=== PATIENT | male | born 1950 | race Caucasian/White ===

== ENCOUNTER 2017-06-08 09:03 | Inpatient (IN) | payer BC, MEDICARE ==
[~2017-06-08] VITALS: Ht 172.7 cm; Wt 76.4 kg
[~2017-06-08 09:03] MED LIST: APIX5TAB PO; ASPI-983 PO; AZIT500T PO; AZTH250C PO; BUPR-42 PO; CEFD300C PO; CEFD300C3 PO; CLOP75TA28 PO; CLOP75TA69 PO; FLUT1DIS26 IH; FURO40TA4 PO; IPRA3AMP IH; IPRA3AMP11 INH; LISI-552 PO; LISI10TA2 PO; LOSA50TA36 PO; METO-387 PO; Multivitamins/Minerals Therap PO; POTA20TA15 PO; SOTA80TA PO
--- OUTSIDE RECORDS SUMMARY | 2017-06-08 09:08 | XMS REPORT | Clinical Summary ---
Author Author [facility] Organization [facility] Address Unknown Phone Unavailable Care Team Providers Care Skein Drier Name Role Phone PCP Unavailable Source Comments Some departments are not documenting in the electronic medical record. If you do not see the information that you expected, contact Release of Information in the Health Information Management department at [phone] for further assistance in locating additional records.[facility] Allergies No Known Allergies Current Medications Prescription Sig. Disp. Refills Start End Date Status Date fluticasone-salmeterol Inhale 1 Puff by mouth Active (ADVAIR DISKUS) 250-50 every 12 hours. mcg inhalation disk albuterol-ipratropium Inhale 3 mL solution as Active (DUO-NEB, DUO-VENT) 0.5 directed four times mg-3 mg(2.5 mg base)/3 mL daily. nebulizer solution tiotropium (SPIRIVA) 18 Inhale 18 mcg by mouth Active mcg capsule for inhaler daily. senna/docusate Take 2 Tabs by mouth 60 Tab 0 02/19/20 Active (SENOKOT-S) 8.6/50 mg twice daily. 14 tablet levofloxacin (LEVAQUIN) Take 1 Tab by mouth every 9 Tab 0 02/19/20 Active 750 mg tablet 24 hours. 14 oxyCODONE-acetaminophen Take 1-2 Tabs by mouth 30 Tab 0 02/19/20 Active (PERCOCET) 5-325 mg every 4 hours as needed 14 tablet for Pain Earliest Fill Date: 02/17/14 Max 12 tabs/day Active Problems Problem Noted Date Adenocarcinoma (HCC) 02/21/2014 Lung cancer (HCC) 01/11/2014 COPD (chronic obstructive pulmonary disease) (HCC) 01/11/2014 Family History Medical History Relation Name Comments Cancer-Lung Brother Cancer-Colon Father Relation Name Status Comments Brother Father Social History Tobacco Use Types Packs/Day Years Used Date Former Smoker Cigarettes 1.5 40 Quit: 12/11/2013 Smokeless Tobacco: Never Used Alcohol Use Drinks/Week oz/Week Comments Yes 6 Standard 3.0 drinks or equivalent Sex Assigned at Date Recorded Not on file Last Filed Vital Signs Vital Sign Reading Time Taken Blood Pressure 140/80 03/09/2014 3:32 PM CDT Pulse 82 03/09/2014 3:32 PM CDT Temperature 36.7 C (98 F) 02/18/2014 7:25 AM CDT Respiratory Rate - - Oxygen Saturation 99% 02/18/2014 7:25 AM CDT Inhaled Oxygen - - Concentration Weight 73.5 kg (162 lb) 03/09/2014 3:32 PM CDT Height 170.2 cm (5' 7") 03/09/2014 3:32 PM CDT Body Mass Index 25.37 03/09/2014 3:32 PM CDT Plan of Treatment Health Maintenance Due Date Last Done Comments HEPATITIS C SCREENING 1950 PHYSICAL (COMPREHENSIVE) 1959 EXAM PERTUSSIS VACCINE 1963 TETANUS VACCINE 1969 COLORECTAL CANCER 2002 SCREENING SHINGLES VACCINE 2012 INFLUENZA VACCINE 01/06/2017 Results Not on filefrom Last 3 Months
--- OUTSIDE RECORDS SUMMARY | 2017-06-08 09:09 | XMS REPORT | Continuity of Care Document ---
Author Author [facility] Organization [facility] Address Unknown Phone Unavailable Allergies Active Description Code Type Severity Reaction Onset Reported/Identified Relationship to Patient Clinical Status Yes No Known Drug Allergies [id number] Drug Allergy Unknown N/A 12/11/2013 Medications There is no data. Problems Date Dx Coded Attending Type Code Diagnosis Diagnosed By 12/14/2013 LORI LOPEZ DO Ot 276.1 HYPOSMOLALITY 12/14/2013 LORI LOPEZ DO S Ot 305.01 ALCOHOL ABUSE-CONTINUOUS 12/14/2013 LORI LOPEZ DO S Ot 305.1 TOBACCO USE DISORDER 12/14/2013 LORI LOPEZ DO S Ot 401.9 HYPERTENSION NOS 12/14/2013 SHIRLENE LOPEZ DOLINE S Ot 486 PNEUMONIA, ORGANISM NOS 12/14/2013 SHIRLENE LOPEZ DOLINE S Ot 496 CHR AIRWAY OBSTRUCT NEC 12/14/2013 SHIRLENE LOPEZ DOLINE S Ot 759.6 HAMARTOSES NEC 12/14/2013 HILLARY LOPEZ DOQUELINE S Ot 786.6 CHEST SWELLING/MASS/LUMP 12/21/2013 YOBANI COOL DO Ot 496 CHR AIRWAY OBSTRUCT NEC 12/21/2013 YOBANI COOL DO Ot 512.1 IATROGENIC PNEUMOTHORAX 12/21/2013 YOBANI COOL DO Ot 518.89 OTHER DISEASES OF LUNG, NEC 04/05/2014 CHAZ PUGA MD Ot 305.1 TOBACCO USE DISORDER 04/05/2014 CHAZ PUGA MD Ot 706.2 SEBACEOUS CYST 04/05/2014 CHAZ PUGA MD Ot 786.6 CHEST SWELLING/MASS/LUMP 04/30/2015 LORI LOPEZ DO S Ot E87.1 04/30/2015 LORI LOPEZ DO S Ot F17.210 04/30/2015 LORI LOPEZ DO S Ot J44.9 05/01/2015 JOHN HOROWITZ, LORI S Ot E87.1 05/01/2015 JOHN HOROWITZ, LORI S Ot F17.210 05/01/2015 JOHN HOROWITZ, LORI S Ot J44.9 05/02/2015 CLAUNDCALVIN HOROWITZ, LORI S Ot C34.91 MALIGNANT NEOPLASM OF UNSP PART OF RIGHT 05/02/2015 SHIRLENE LOPEZ DOLINE S Ot E87.1 HYPO-OSMOLALITY AND HYPONATREMIA 05/02/2015 JOHN HOROWITZ, LORI S Ot F10.10 ALCOHOL ABUSE, UNCOMPLICATED 05/02/2015 CLAUNDER DO, LORI S Ot F17.210 NICOTINE DEPENDENCE, CIGARETTES, UNCOMPL 05/02/2015 JOHN HOROWITZ, LORI S Ot I48.91 UNSPECIFIED ATRIAL FIBRILLATION 05/02/2015 JOHN HOROWITZ, LORI S Ot I95.9 HYPOTENSION, UNSPECIFIED 05/02/2015 JOHN HOROWITZ, LORI S Ot J44.9 CHRONIC OBSTRUCTIVE PULMONARY DISEASE, U 05/02/2015 JOHN HOROWITZ, LORI S Ot N28.9 DISORDER OF KIDNEY AND URETER, UNSPECIFI 07/11/2015 RADHA LUGO FACC, CRISTIAN FACP CCDS Ot D64.9 ANEMIA, UNSPECIFIED 07/11/2015 RADHA LUGO FACC, ALI FACP CCDS Ot E87.1 HYPO-OSMOLALITY AND HYPONATREMIA 07/11/2015 RADHA LUGO FACC, ALI FACP CCDS Ot F10.10 ALCOHOL ABUSE, UNCOMPLICATED 07/11/2015 RADHA LUGO FACC, CRISTIAN FACP CCDS Ot F17.200 NICOTINE DEPENDENCE, UNSPECIFIED, UNCOMP 07/11/2015 RADHA LUGO FACC, ALI FACP CCDS Ot I10 ESSENTIAL (PRIMARY) HYPERTENSION 07/11/2015 RADHA LUGO FACC, ALI FACP CCDS Ot I25.10 ATHSCL HEART DISEASE OF [place] CORONARY 07/11/2015 RADHA LUGO FACC, ALI FACP CCDS Ot I48.91 UNSPECIFIED ATRIAL FIBRILLATION 07/11/2015 RADHA LUGO FACC, ALI FACP CCDS Ot R06.00 DYSPNEA, UNSPECIFIED 07/11/2015 RADHA LUGO FACC, CRISTIAN FACP CCDS Ot R55 SYNCOPE AND COLLAPSE 07/11/2015 RADHA LUGO FACC, ALI FACP CCDS Ot Z79.01 DATA PROCESSING SYSTEMS CONSULTANT (CURRENT) USE OF ANTICOAGULANT 07/11/2015 RADHA LUGO [facility], CRISTIAN [facility] Ot Z79.899 OTHER DATA PROCESSING SYSTEMS CONSULTANT (CURRENT) DRUG THERAPY 11/21/2015 LORI LOPEZ DO Ot E87.1 HYPO-OSMOLALITY AND HYPONATREMIA 11/21/2015 SHIRLENE LOPEZ DOLINE S Ot F10.239 ALCOHOL DEPENDENCE WITH WITHDRAWAL, UNSP 11/21/2015 SHIRLENE LOPEZ DOLINE S Ot F17.210 NICOTINE DEPENDENCE, CIGARETTES, UNCOMPL 11/21/2015 JOHN HOROWITZ LORI S Ot I10 ESSENTIAL (PRIMARY) HYPERTENSION 11/21/2015 JOHN HOROWITZ LORI S Ot I25.10 ATHSCL HEART DISEASE OF [place] CORONARY 11/21/2015 JOHN HOROWITZ LORI S Ot J18.9 PNEUMONIA, UNSPECIFIED ORGANISM 11/21/2015 CLAUJANEL HOROWITZ LORI S Ot Z85.118 PERSONAL HISTORY OF MALIGNANT NEOPLASM O 11/21/2015 JORGECALVIN HOROWITZ LORI S Ot Z95.5 PRESENCE OF CORONARY ANGIOPLASTY IMPLANT 11/27/2015 JOHN HOROWITZ LORI S Ot 162.9 MAL [place] BRONCH/LUNG NOS 11/27/2015 CLAUJANEL HOROWITZ LORI S Ot 512.89 OTHER PNEUMOTHORAX 11/27/2015 JORGECALVIN HOROWITZ LORI S Ot 793.19 OTHER NONSPECIFIC ABNORMAL FINDING OF [place] 11/27/2015 EDD LUGO, CHAZ Little Ot 786.6 CHEST SWELLING/MASS/LUMP 11/27/2015 YOBANI COOL DO Ot 518.89 OTHER DISEASES OF LUNG, NEC 11/27/2015 YOBANI COOL DO Ot 793.19 OTHER NONSPECIFIC ABNORMAL FINDING OF [place] 11/27/2015 YOBANI COOL DO Ot V15.82 HISTORY OF TOBACCO USE 11/27/2015 Ot 305.1 TOBACCO USE DISORDER 11/27/2015 Ot 706.2 SEBACEOUS CYST 11/27/2015 Ot 786.6 CHEST SWELLING/MASS/LUMP Procedures There is no data. Results There is no data. Encounters ACCT No. Visit Date/Time Discharge Status Pt. Type Provider Facility Loc./Unit Complaint [id number] 11/18/2015 00:58:00 11/21/2015 10:05:00 DIS Inpatient JORGEER LORI HOROWITZ S [facility] [address] [id number] 07/10/2015 10:11:00 07/11/2015 11:15:00 DIS Outpatient RADHA LUGO FACC, CRISTIAN SAUCEDO CCDS [facility] [id number] 04/29/2015 14:43:00 05/02/2015 10:55:00 DIS Inpatient SHIRLENE LOPEZ DOLINE S [address] [id number] 01/05/2014 13:07:00 04/05/2014 00:01:00 DIS Outpatient CHAZ PUGA MD [facility] ONC [id number] 01/23/2014 09:13:00 01/23/2014 23:59:59 CLS Outpatient YOBANI COOL DO [facility] CARD [id number] 01/20/2014 13:54:00 01/20/2014 23:59:59 CLS Outpatient CHAZ PUGA MD [facility] RT [id number] 12/27/2013 07:15:00 12/27/2013 23:59:59 CLS Outpatient LORI LOPEZ DO S [facility] RAD [id number] 12/19/2013 18:20:00 12/21/2013 02:10:00 DIS Inpatient YOBANI COOL DO [facility] SURGICAL [id number] 12/11/2013 17:07:00 12/14/2013 17:40:00 DIS Inpatient SHIRLENE LOPEZ DOLINE S [address] [id number] 04/06/2014 00:00:00 Document Registration
[2017-06-08] MEDS ORDERED: NS IV 1000 ML 1,000 ML IV ONE (09:22)
[2017-06-08] MEDS ORDERED: RT-ALBUTEROL/IPRATROPIUM 3 ML (DUONEB) VIAL INH ONE ×2 (09:30→10:00)
[2017-06-08] MEDS ORDERED: methylPREDNISolone 125 MG (Solu-MEDROL) VIAL IVP ONE (10:00)
--- NOTE | 2017-06-08 10:03 | Diagnostic Imaging Report ---
INDICATION: Cough and congestion. Comparison is made to the prior from 11/21/2015. FINDINGS: There has not been evidence of significant interval change in the appearance of the patient's large left juxtahilar pulmonary mass. Background features of interstitial lung disease are noted. There are no new infiltrates. There is no effusion or evidence of a pneumothorax. Heart size appears stable without evidence of failure. IMPRESSION: 1. Stable left juxtahilar pulmonary mass. Background features of underlying interstitial lung disease are again noted. No new superimposed process is evident. Dictated by: Dictated on workstation # [id number]
[2017-06-08 10:11] LABS: BASOPHILS % (AUTO) 0 % (0-10); EOSINOPHILS % (AUTO) 0 % (0-10); HEMATOCRIT 45 % (40-54); HEMOGLOBIN 15.5 G/DL (13.3-17.7); LYMPHOCYTES # (AUTO) 1.3 X 10^3 (1.0-4.0); LYMPHOCYTES % (AUTO) 7 % (12-44); MEAN CORPUSCULAR HEMOGLOBIN 32 PG (25-34); MEAN CORPUSCULAR HGB CONC 35 G/DL (32-36); MEAN CORPUSCULAR VOLUME 93 FL (80-99); MEAN PLATELET VOLUME 10.1 FL (7.4-10.4); MONOCYTES % (AUTO) 17 % (0-12); NEUTROPHILS # (AUTO) 13.1 X 10^3 (1.8-7.8); NEUTROPHILS % (AUTO) 75 % (42-75); PLATELET COUNT 200 10^3/uL (130-400); RED BLOOD COUNT 4.83 10^6/uL (4.35-5.85); RED CELL DISTRIBUTION WIDTH 13.1 % (10.0-14.5); WHITE BLOOD COUNT 17.4 10^3/uL (4.3-11.0)
[2017-06-08 10:16] LABS: INR 1.2 (0.8-1.4); PROTHROMBIN TIME PATIENT 14.8 SEC (12.2-14.7)
[2017-06-08 10:27] LABS: ALANINE AMINOTRANSFERASE 13 U/L (0-55); ALBUMIN 4.2 GM/DL (3.2-4.5); ALKALINE PHOSPHATASE 80 U/L (40-136); BILIRUBIN,TOTAL 0.7 MG/DL (0.1-1.0); BUN/CREATININE RATIO 13; CALCIUM 9.4 MG/DL (8.5-10.1); CARBON DIOXIDE 21 MMOL/L (21-32); CHLORIDE 94 MMOL/L (98-107); CREATININE SERUM 0.83 MG/DL (0.60-1.30); GFR ESTIMATED > 60; GLUCOSE 120 MG/DL (70-105); SODIUM 131 MMOL/L (135-145)
[2017-06-08 10:33] LABS: BAND NEUTROPHILS 6 %; LYMPHOCYTES % (MANUAL) 5 %; MONOCYTES % (MANUAL) 14 %; NEUTROPHILS % (MANUAL) 75 %; RBC MORPH NORMAL; TOXIC GRANULATION/VACUOLAZATIO 1+
--- NOTE | 2017-06-08 11:05 | ED General ---
General Chief Complaint: Respiratory Problems Stated Complaint: TROUBLE BREATHING;CONGESTION;COUGH Nursing Triage Note: c/o soa and cough/congestion. Onset 2-3 days ago. Fever noted. Nursing Sepsis Screen: Possible Sepsis Risk Source of Information: Patient Exam Limitations: No Limitations History of Present Illness Time Seen by Provider: 09:07 Initial Comments This 66-year-old gentleman with COPD presents to the emergency room with respiratory distress. He is wheezing, cough, dyspneic, and febrile. Oxygen saturation is 88 percent. He normally uses nebulizer treatments at home but ran out of his medication today. He is a former smoker and quit smoking a few years ago. He has been ill for 2 days. Patient has a known chronic left lung mass which has been biopsied in the past. The pathology report on file states the biopsy was suspicious for adenocarcinoma. The patient states this has been followed on an outpatient basis and neoplasm on the left has been ruled out. He does have a history of lung cancer on the right. Allergies and Home Medications Allergies Coded Allergies: No Known Drug Allergies (Unverified , 12/11/13) Home Medications Aspirin 325 Mg Tablet.dr, 325 MG PO DAILY PRN for PAIN-MILD, (Reported) Cefdinir 300 Mg Capsule, 300 MG PO BID, #6 Prescribed by: SANA ESPINAL on 06/11/17 1103 Ipratropium/Albuterol Sulfate 3 Ml Ampul.neb, 3 ML IH BID PRN for SHORTNESS OF BREATH, #60 Prescribed by: SANA ESPINAL on 06/11/17 1103 Lisinopril 20 Mg Tablet, 20 MG PO DAILY, #30 Prescribed by: SANA ESPINAL on 06/11/17 1103 Prednisone 10 Mg Tab.ds.pk, 10 MG PO DAILY, #21 Take 6 tabs(60mg)daily,decrease by 1 tab(10MG)daily. Prescribed by: SANA ESPINAL on 06/11/17 1103 Constitutional: see HPI EENTM: see HPI Respiratory: see HPI Cardiovascular: no symptoms reported Gastrointestinal: no symptoms reported Genitourinary: no symptoms reported Musculoskeletal: no symptoms reported Skin: no symptoms reported Psychiatric/Neurological: No Symptoms Reported Hematologic/Lymphatic: No Symptoms Reported Past Blnvxwp-Bmmeoq-Ebymho Hx Patient Social History Alcohol Use: Denies Use Recreational Drug Use: No Smoking Status: Former Smoker 2nd Hand Smoke Exposure: No Recent Foreign Travel: No Contact w/Someone Who Travel: No Recent Infectious Disease Expo: No Seasonal Allergies Seasonal Allergies: No Surgeries History of Surgeries: Yes (1/3 OF RIGHT LUNG REMOVED FOR CANCER - AND TEETH REMOVED FOR DENTURES) Surgeries: Lobectomy, Tonsillectomy Respiratory History of Respiratory Disorde: Yes (LUNG RESECTION, left upper lung mass) Respiratory Disorders: COPD, Emphysema Cardiovascular History of Cardiac Disorders: Yes ( STENTS X2) Cardiac Disorders: Coronary Artery Disease, Hypertension Neurological History of Neurological Disord: No Reproductive System Hx Reproductive Disorders: No Gastrointestinal History of Gastrointestinal Di: No Musculoskeletal History of Musculoskeletal Dis: No Endocrine History of Endocrine Disorders: No HEENT HEENT Disorders: Cataract Loss of Vision: Left Cancer History of Cancer: Yes Cancer: Lung Psychosocial History of Psychiatric Problem: No Integumentary History of Skin or Integumenta: No Blood Transfusions History of Blood Disorders: No Adverse Reaction to a Blood Tr: No Family Medical History Significant Family History: Heart Disease, Cancer, Hypertension, Lung Disease Family Medial History: Cancer (brother had lung cancer) 19 FATHER G8 BROTHER Cancer of colon 19 FATHER Family history: Allergy G8 BROTHER Hearing loss 19 FATHER Malignant neoplasm of lung G8 BROTHER Parkinson's disease 19 MOTHER Physical Exam-Suspected Sepsis Physical Exam Vital Signs Vital Sign - Last 12Hours 06/08/17 06/08/17 09:35 10:22 Temp 101.4 Pulse 92 Resp 24 B/P (MAP) 136/97 (110) Pulse Ox 95 O2 Delivery Nasal Cannula O2 Flow Rate 5.00 Capillary Refill : Less Than 3 Seconds Blood Pressure Mean: 110 General Appearance: WD/WN, Moderate Distress HEENT: PERRL/EOMI, Normal ENT Inspection, Pharynx Normal Neck: Normal Inspection Respiratory: Accessory Muscle Use, Respiratory Distress, Wheezing Cardiovascular: No Edema, No Murmur, Tachycardia Gastrointestinal: Non Tender, Soft Extremity: Normal Inspection, No Pedal Edema Neurologic/Psychiatric: Alert, Oriented x3, No Motor/Sensory Deficits, Normal Mood/Affect, fish header II-XII Norm as Tested Skin: normal color, warm/dry Focused Exam Evaluation Lactate Level Lactic Acid Level Progress/Results/Core Measures Suspected Sepsis Recent Fever Within 48 Hours: No Infection Criteria Present: Suspected New Infection New/Unexplained Altered Menta: No Sepsis Screen: Possible Sepsis Risk Sepsis Diagnosis: SIRS Temperature:101.4 Pulse: 92 Respiratory Rate: 24 Laboratory Tests 06/11/17 05:24: White Blood Count 10.8 Blood Pressure 136 /97 Mean: 110 Laboratory Tests 06/11/17 05:24: Creatinine 0.65, Platelet Count 211, Total Bilirubin 0.2 Results/Orders Lab Results Laboratory Tests Test 06/11/17 05:24 Range/Units White Blood Count 10.8 4.3-11.0 10^3/uL Red Blood Count 4.13 L 4.35-5.85 10^6/uL Hemoglobin 13.3 13.3-17.7 G/DL Hematocrit 39 L 40-54 % Mean Corpuscular Volume 95 80-99 FL Mean Corpuscular Hemoglobin 32 25-34 PG Mean Corpuscular Hemoglobin Concent 34 32-36 G/DL Red Cell Distribution Width 12.7 10.0-14.5 % Platelet Count 211 130-400 10^3/uL Mean Platelet Volume 10.4 7.4-10.4 FL Neutrophils (%) (Auto) 87 H 42-75 % Lymphocytes (%) (Auto) 6 L 12-44 % Monocytes (%) (Auto) 7 0-12 % Eosinophils (%) (Auto) 0 0-10 % Basophils (%) (Auto) 0 0-10 % Neutrophils # (Auto) 9.3 H 1.8-7.8 X 10^3 Lymphocytes # (Auto) 0.6 L 1.0-4.0 X 10^3 Monocytes # (Auto) 0.8 0.0-1.0 X 10^3 Eosinophils # (Auto) 0.0 0.0-0.3 10^3/uL Basophils # (Auto) 0.0 0.0-0.1 10^3/uL Sodium Level 142 135-145 MMOL/L Potassium Level 2.9 L 3.6-5.0 MMOL/L Chloride Level 99 98-107 MMOL/L Carbon Dioxide Level 32 21-32 MMOL/L Anion Gap 11 5-14 MMOL/L Blood Urea Nitrogen 8 7-18 MG/DL Creatinine 0.65 0.60-1.30 MG/DL Estimat Glomerular Filtration Rate > 60 BUN/Creatinine Ratio 12 Glucose Level 144 H 70-105 MG/DL Calcium Level 9.0 8.5-10.1 MG/DL Total Bilirubin 0.2 0.1-1.0 MG/DL Aspartate Amino Transf (AST/SGOT) 19 5-34 U/L Alanine Aminotransferase (ALT/SGPT) 19 0-55 U/L Alkaline Phosphatase 67 40-136 U/L Total Protein 5.4 L 6.4-8.2 GM/DL Albumin 3.5 3.2-4.5 GM/DL Micro Results My Orders Medications Given in ED Vital Signs/I&O Capillary Refill : Less Than 3 Seconds Blood Pressure Mean: 110 Progress Note : Progress Note Patient responded fairly well to DuoNeb treatment 2. He was also given Solu- Medrol 125 mg by IV route. IV fluids were initiated in the emergency room. Workup demonstrated leukocytosis and an elevated CRP. No overt pneumonia was seen on chest x-ray. Influenza screen was negative. Although no source of infection was identified on workup, Dr. Espinal and I feel it would be la to treat him with antibiotics given the abnormal labs and fever. Given the prevalence of influenza in the community, we will also treat with Tamiflu. Diagnostic Imaging Diagonstic Imaging: Xray Plain Films/CT/US/NM/MRI: chest Comments Chest x-ray viewed by me and report reviewed. See report below: NAME: TANYA WATTER[facility] REC#: [id number] PT STATUS: ADM IN : 1950 PHYSICIAN: CAROL MORTON MD ADMIT DATE: 06/08/17 Signed Date of Exam: 06/08/17 CHEST 1 VIEW, AP/PA ONLY INDICATION: Cough and congestion. Comparison is made to the prior from 11/21/2015. FINDINGS: There has not been evidence of significant interval change in the appearance of the patient's large left juxtahilar pulmonary mass. Background features of interstitial lung disease are noted. There are no new infiltrates. There is no effusion or evidence of a pneumothorax. Heart size appears stable without evidence of failure. IMPRESSION: 1. Stable left juxtahilar pulmonary mass. Background features of underlying interstitial lung disease are again noted. No new superimposed process is evident. Dictated by: Dictated on workstation # [id number] Dict: 06/08/17 0958 Trans: 06/08/17 1259 Interpreted by: SAMUEL LEMUS MD Electronically signed by: SAMUEL LEMUS MD 06/08/17 1259 Departure Communication (Admissions) Time/Spoke to Admitting Phy: 10:[address] Espinal Impression Impression: Primary Impression: COPD exacerbation Additional Impressions: Hypoxia Leukocytosis Qualified Codes: D72.829 - Elevated white blood cell count, unspecified Disposition: 09 ADMITTED INPATIENT Condition: Improved Admissions Decision to Admit Reason: Admit from ER (General) Decision to Admit/Date: Jun 08, 2017 Time/Decision to Admit Time: 09:15 Departure-Patient Inst. Referrals: LORI LOPEZ DO (PCP/Family) Primary Care Physician Scripts Prednisone (Prednisone) 10 Mg Tab.ds.pk 10 MG PO DAILY, #21 PKG Take 6 tabs(60mg)daily,decrease by 1 tab(10MG)daily. Prov: SANA ESPINAL DO 06/11/17 Cefdinir (Cefdinir) 300 Mg Capsule 300 MG PO BID, #6 CAP Prov: SANA ESPINAL DO 06/11/17 Lisinopril (Lisinopril) 20 Mg Tablet 20 MG PO DAILY, #30 TAB Prov: SANA ESPINAL DO 06/11/17 Ipratropium/Albuterol Sulfate (Iprat-Albut 0.5-3(2.5) mg/3 ml) 3 Ml Ampul.neb 3 ML IH BID Y for SHORTNESS OF BREATH, #60 EA Prov: SANA ESPINAL DO 06/11/17 CAROL MORTON MD Jun 08, 2017 11:05
--- OUTSIDE RECORDS SUMMARY | 2017-06-08 11:20 | XMS REPORT | Clinical Summary ---
Author Author [facility] Organization [facility] Address Unknown Phone Unavailable Care Team Providers Care Student Finance Advisor Name Role Phone PCP Unavailable Source Comments Some departments are not documenting in the electronic medical record. If you do not see the information that you expected, contact Release of Information in the Health Information Management department at [phone] for further assistance in locating additional records.[facility] Allergies No Known Allergies Current Medications [...]
--- OUTSIDE RECORDS SUMMARY | 2017-06-08 11:21 | XMS REPORT | Continuity of Care Document ---
Author Author [facility] Organization [facility] Address Unknown Phone Unavailable Allergies Active Description Code Type Severity Reaction Onset Reported/Identified Relationship to Patient Clinical Status Yes No Known Drug Allergies [id number] Drug Allergy Unknown N/A 12/11/2013 Medications There [...] LORI LOPEZ DO S Ot E87.1 04/30/2015 LOIR LOPEZ DO S Ot F17.210 04/30/2015 LORI [...] I48.91 UNSPECIFIED ATRIAL FIBRILLATION 05/02/2015 JOHN HOROWITZ, LROI S Ot I95.9 HYPOTENSION, UNSPECIFIED 05/02/2015 JOHN [...] CCDS Ot I25.10 ATHSCL HEART DISEASE OF [place] CORONARY 07/11/2015 RADHA LUGO FACC, ALI FACP CCDS Ot I48.91 UNSPECIFIED ATRIAL FIBRILLATION 07/11/2015 RADHA LUGO FACC, ALI FACP CCDS Ot R06.00 DYSPNEA, UNSPECIFIED 07/11/2015 RADHA LUGO FACC, CRISTIAN FACP CCDS Ot R55 SYNCOPE AND COLLAPSE 07/11/2015 RADHA LUGO FACC, ALI FACP CCDS Ot Z79.01 FABRIC AND ACCESSORIES ESTIMATOR (CURRENT) USE OF ANTICOAGULANT 07/11/2015 RADHA LUGO [facility] Ot Z79.899 OTHER FABRIC AND ACCESSORIES ESTIMATOR (CURRENT) DRUG THERAPY 11/21/2015 SHIRLENE LOPEZ DOLINE S Ot E87.1 HYPO-OSMOLALITY AND HYPONATREMIA 11/21/2015 SHIRLENE LOPEZ DOLINE S Ot F10.239 ALCOHOL DEPENDENCE WITH WITHDRAWAL, UNSP 11/21/2015 SHIRLENE LOPEZ DOLINE S Ot F17.210 NICOTINE DEPENDENCE, CIGARETTES, UNCOMPL 11/21/2015 HILLARY LOPEZ DOQUELINE S Ot I10 ESSENTIAL (PRIMARY) HYPERTENSION 11/21/2015 SHIRLENE LOPEZ DOLINE S Ot I25.10 ATHSCL HEART DISEASE OF [place] CORONARY 11/21/2015 SHIRLENE LOPEZ DOLINE S Ot J18.9 PNEUMONIA, UNSPECIFIED ORGANISM 11/21/2015 SHIRLENE LOPEZ DOLINE S Ot Z85.118 PERSONAL HISTORY OF MALIGNANT NEOPLASM O 11/21/2015 SHIRLENE LOPEZ DOLINE S Ot Z95.5 PRESENCE OF CORONARY ANGIOPLASTY IMPLANT 11/27/2015 JOHN HOROWITZ LORI S Ot 162.9 MAL DAYRON BRONCH/LUNG NOS 11/27/2015 SHIRLENE LOPEZ DOLINE S Ot 512.89 OTHER PNEUMOTHORAX 11/27/2015 JOHN HOROWITZ LORI S Ot 793.19 OTHER NONSPECIFIC [...] SWELLING/MASS/LUMP Procedures There is no data. Results Test Result Range Influenza virus A and B antigen detection - 06/08/17 09:24 FLU RESULT NEGATIVE FOR INFLUENZA A AND B ANTIGENS BY [facility] Complete blood count (CBC) with automated white blood cell (WBC) differential - 06/08/17 09:55 Blood leukocytes automated count (number/volume) 17.4 10*3/uL 4.3-11.0 Blood erythrocytes automated count (number/volume) 4.83 10*6/uL 4.35-5.85 Venous blood hemoglobin measurement (mass/volume) 15.5 g/dL 13.3-17.7 Blood hematocrit (volume fraction) 45 % 40-54 Automated erythrocyte mean corpuscular volume 93 [foz_us] 80-99 Automated erythrocyte mean corpuscular hemoglobin (mass per erythrocyte) 32 pg 25-34 Automated erythrocyte mean corpuscular hemoglobin concentration measurement ( mass/volume) 35 g/dL 32-36 Automated erythrocyte distribution width ratio 13.1 % 10.0-14.5 Automated blood platelet count (count/volume) 200 10*3/uL 130-400 Automated blood platelet mean volume measurement 10.1 [foz_us] 7.4-10.4 Automated blood neutrophils/100 leukocytes 75 % 42-75 Automated blood lymphocytes/100 leukocytes 7 % 12-44 Blood monocytes/100 leukocytes 17 % 0-12 Automated blood eosinophils/100 leukocytes 0 % 0-10 Automated blood basophils/100 leukocytes 0 % 0-10 Blood neutrophils automated count (number/volume) 13.1 10*3 1.8-7.8 Blood lymphocytes automated count (number/volume) 1.3 10*3 1.0-4.0 Blood monocytes automated count (number/volume) 3.0 10*3 0.0-1.0 Automated eosinophil count 0.0 10*3/uL 0.0-0.3 Automated blood basophil count (count/volume) 0.0 10*3/uL 0.0-0.1 Blood lactic acid measurement (moles/volume) - 06/08/17 09:55 Blood lactic acid measurement (moles/volume) 1.36 mmol/L 0.50-2.00 PT panel in platelet poor plasma by coagulation assay - 06/08/17 09:55 Prothrombin time (PT) in platelet poor plasma by coagulation assay 14.8 s 12.2-14.7 INR in platelet poor plasma or blood by coagulation assay 1.2 0.8-1.4 Activated partial thromboplastin time (aPTT) in platelet poor plasma bycoagulation assay - 06/08/17 09:55 Activated partial thromboplastin time (aPTT) in platelet poor plasma bycoagulation assay 39 s 24-35 Comprehensive metabolic panel - 06/08/17 09:55 Serum or plasma sodium measurement (moles/volume) 131 mmol/L 135-145 Serum or plasma potassium measurement (moles/volume) 4.0 mmol/L 3.6-5.0 Serum or plasma chloride measurement (moles/volume) 94 mmol/L 98-107 Carbon dioxide 21 mmol/L 21-32 Serum or plasma anion gap determination (moles/volume) 16 mmol/L 5-14 Serum or plasma urea nitrogen measurement (mass/volume) 11 mg/dL 7-18 Serum or plasma creatinine measurement (mass/volume) 0.83 mg/dL 0.60-1.30 Serum or plasma urea nitrogen/creatinine mass ratio 13 NRG Serum or plasma creatinine measurement with calculation of estimated glomerular filtration rate > NRG Serum or plasma glucose measurement (mass/volume) 120 mg/dL 70-105 Serum or plasma calcium measurement (mass/volume) 9.4 mg/dL 8.5-10.1 Serum or plasma total bilirubin measurement (mass/volume) 0.7 mg/dL 0.1-1.0 Serum or plasma alkaline phosphatase measurement (enzymatic activity/volume) 80 U/L 40-136 Serum or plasma aspartate aminotransferase measurement (enzymatic activity/ volume) 18 U/L 5-34 Serum or plasma alanine aminotransferase measurement (enzymatic activity/volume ) 13 U/L 0-55 Serum or plasma protein measurement (mass/volume) 8.0 g/dL 6.4-8.2 Serum or plasma albumin measurement (mass/volume) 4.2 g/dL 3.2-4.5 Serum or plasma C reactive protein measurement (mass/volume) - 06/08/17 09:55 Serum or plasma C reactive protein measurement (mass/volume) 14.87 mg/dL 0.00-0.50 Blood manual differential performed detection - 06/08/17 09:55 Blood monocytes/100 leukocytes 14 % NRG Manual blood segmented neutrophils/100 leukocytes 75 % NRG Blood band neutrophils/100 leukocytes 6 % NRG Manual blood lymphocytes/100 leukocytes 5 % NRG Blood erythrocyte morphology finding identification NORMAL NRG Blood toxic granules detection by light microscopy 1+ NRG Encounters ACCT No. Visit Date/Time Discharge Status Pt. Type Provider Facility Loc./Unit Complaint [id number] 11/18/2015 00:58:00 11/21/2015 10:05:00 DIS Inpatient ORENDER DO LORI S [address] [id number] 07/10/2015 10:11:00 07/11/2015 11:15:00 DIS Outpatient RADHA LUGO FACCCRISTIAN FACP CCDS [facility] [id number] 04/29/2015 14:43:00 05/02/2015 10:55:00 DIS Inpatient ORENDER DO LORI S [address] [id number] 01/05/2014 13:07:00 04/05/2014 00:01:00 DIS Outpatient CHAZ PUGA MD [facility] ONC [id number] 01/23/2014 09:13:00 01/23/2014 23:59:59 CLS Outpatient YOBANI COOL DO [facility] CARD [id number] 01/20/2014 13:54:00 01/20/2014 23:59:59 CLS Outpatient CHAZ PUGA MD [facility] RT [id number] 12/27/2013 07:15:00 12/27/2013 23:59:59 CLS Outpatient CLAUNDER DO LORI S [facility] RAD [id number] 12/19/2013 18:20:00 12/21/2013 02:10:00 DIS Inpatient YOBANI COOL DO [facility] SURGICAL [id number] 12/11/2013 17:07:00 12/14/2013 17:40:00 DIS Inpatient ORENDER DO LORI S [address] [id number] 06/08/2017 10:16:00 Document Registration [id number] 04/06/2014 00:00:00 Document Registration
[2017-06-08 11:55] VITALS: BP 137/85
[2017-06-08] MEDS ORDERED: INFLUENZA TRIvalent 2017-2018 0.5 ML/45 MCG SYR IM ONE (13:00)
[2017-06-08] MEDS ORDERED: RT-ALBUTEROL SULF 2.5 MG/3 ML PRE-MIX VIAL INH PRN (13:00)
[2017-06-08] MEDS ORDERED: AZITHROMYCIN 500 MG/NS 250 ML IVPB IV NR ×2 (13:00)
[2017-06-08] MEDS: NS IV 1000 ML 1,000 ML IV SCH ×2 (13:28→21:51)
[2017-06-08] MEDS: OSELTAMIVIR 75 MG (TAMIFLU) BOX OF 10 PO SCH ×2 (13:28→20:01)
[2017-06-08] MEDS: cefTRIAXone 1 GM/NS 50 ML IVPB IV SCH ×2 (13:36)
--- NOTE | 2017-06-08 14:05 | History & Physical-Hospitalist ---
HPI History of Present Illness: HPI/Chief Complaint The patient is a 66-year-old white male presents to the emergency room this morning with respiratory distress. He reported that he had been sick for 2-3 days. Symptoms seem to be increasing and consisted of cough and dyspnea fever and wheezing. He also reported that he had run out of his albuterol for use in his home nebulizer. He reports he continues to smoke a few cigarettes but previously had smoked up to 2 and half packs per day. 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 He then had a needle biopsy of a left lung mass which was thought to be suspicious for adenocarcinoma but not confirmed. This mass has remained stable in size. In addition to a fever of 101+ he had a white count of 17,000. Chest x-ray did not confirm a pneumonia. Source: patient Exam Limitations: no limitations Date Seen 06/08/17 Time Seen by Provider: 14:00 Attending Physician Manju Wu DO PCP Manju Wu DO Referring Physician Date of Admission Jun 08, 2017 at 11:01 Home Medications & Allergies Home Medications Reviewed patient Home Medication Reconciliation Form Allergies Allergies Coded Allergies No Known Drug Allergies (Unverified12/11/13) Past Jdhtuxe-Pzjdgx-Glyskr Hx Patient Social History Alcohol Use: Occasionally Uses Alcohol Beverage of Choice: Beer Recreational Drug Use: No Smoking Status: Current Someday Smoker Type Used: Cigarettes 2nd Hand Smoke Exposure: No Physical Abuse Screen: No Sexual Abuse: No Recent Foreign Travel: No Contact w/other who traveled: No Recent Hopitalizations: No Recent Infectious Disease Expo: No Seasonal Allergies Seasonal Allergies: No Surgeries Yes (1/3 OF RIGHT LUNG REMOVED FOR CANCER - AND TEETH REMOVED FOR DENTURES) Lobectomy, Tonsillectomy Respiratory Yes (LUNG RESECTION) Currently Using CPAP: No Currently Using BIPAP: No Cardiovascular Yes ( STENTS X2) Coronary Artery Disease, Hypertension Neurological No Reproductive System Hx Reproductive Disorders: No Genitourinary No Gastrointestinal No Musculoskeletal No Endocrine History of Endocrine Disorders: No HEENT History of HEENT Disorders: Yes HEENT Disorders: Cataract Loss of Vision: Bilateral Hearing Impairment: Denies Cancer Yes Lung Did You Recieve Any Treatments: Yes Type of Treatment: Surgical Intervention Psychosocial History of Psychiatric Problem: No Integumentary History of Skin or Integumenta: No Blood Transfusions History of Blood Disorders: No Adverse Reaction to a Blood Tr: No Family Medical History Significant Family History: Heart Disease, Cancer, Hypertension, Lung Disease Family Hx: Cancer (brother had lung cancer) 19 FATHER G8 BROTHER Cancer of colon 19 FATHER Family history: Allergy G8 BROTHER Hearing loss 19 FATHER Malignant neoplasm of lung G8 BROTHER Parkinson's disease 19 MOTHER Review of Systems Constitutional: see HPI, chills, fever, malaise EENTM: no symptoms reported Respiratory: see HPI, cough, dyspnea on exertion, short of breath, wheezing Cardiovascular: no symptoms reported Gastrointestinal: no symptoms reported Genitourinary: no symptoms reported Musculoskeletal: no symptoms reported Skin: no symptoms reported Psychiatric/Neurological: No Symptoms Reported Physical Exam Physical Exam Vital Signs Vital Sign - Last 12Hours 06/08/17 06/08/17 09:35 10:22 Temp 101.4 Pulse 92 Resp 24 B/P (MAP) 136/97 (110) Pulse Ox 95 O2 Delivery Nasal Cannula O2 Flow Rate 5.00 Capillary Refill : Less Than 3 Seconds General Appearance: Mild Distress Eyes: Bilateral Eye Normal Inspection HEENT: Normal ENT Inspection Neck: Normal Inspection Respiratory: Decreased Breath Sounds (distant breath sounds without rhonchi or wheezing) Cardiovascular: Regular Rate, Rhythm, No Murmur Gastrointestinal: Normal Bowel Sounds Back: Normal Inspection, No CVA Tenderness, No Vertebral Tenderness Extremity: Normal Capillary Refill, Normal Inspection, Normal Range of Motion, Non Tender, No Calf Tenderness, No Pedal Edema Neurologic/Psychiatric: Alert, Oriented x3, No Motor/Sensory Deficits, Normal Mood/Affect Results Results/Procedures Lab Laboratory Tests 06/08/17 09:55 Assessment/Plan Admission Diagnosis Fever/leukocytosis, suspect sepsis Assessment and Plan Pulmonary toilet. Empiric antibiotics. Clinical Quality Measures DVT/VTE Risk/Contraindication: Risk Factor Score Per Nursin RFS Level Per Nursing on Admit: 4+=Very High NOELLE SALGADO MD Jun 08, 2017 14:05
[2017-06-08 16:22] VITALS: BP 142/76
[2017-06-08] MEDS: methylPREDNISolone 40 MG/ML (Solu-MEDROL) VIAL IV SCH ×2 (18:28→23:52)
[2017-06-08 19:52] VITALS: BP 160/86
[2017-06-09] VITALS (8 sets, daily range): BP systolic 142–198; BP diastolic 73–97
[2017-06-09] MEDS: NS IV 1000 ML 1,000 ML IV SCH ×3 (04:37→18:18)
[2017-06-09] MEDS: methylPREDNISolone 40 MG/ML (Solu-MEDROL) VIAL IV SCH ×3 (05:45→18:19)
[2017-06-09] MEDS: OSELTAMIVIR 75 MG (TAMIFLU) BOX OF 10 PO SCH ×2 (08:12→20:59)
[2017-06-09] MEDS: AZITHROMYCIN 250 MG TAB (ZITHROMAX) PO SCH (08:12)
[2017-06-09] MEDS ORDERED: ASPI325T32 PO (10:18)
[2017-06-09] MEDS: cefTRIAXone 1 GM/NS 50 ML IVPB IV SCH ×2 (13:39)
--- NOTE | 2017-06-09 13:57 | Progress Note-Hospitalist ---
Standard Progress Note Progress Notes/Assess & Plan Date Seen 06/09/17 Time Seen by Provider: 13:51 Diagnosis Fever/leukocytosis, suspect sepsis Assess & Plan/Chief Complaint The patient had just finished shower as I entered. He reported he was feeling considerably better. He was able to speak in full sentences. He has been afebrile since shortly after admission. Physical exam: Breath sounds are distant but clear. CV was regular. Abdomen is soft. Ankles show no edema. Impression: Pneumonia. 2.COPD. Plan: Cultures show Streptococcus pneumonia. As he is on Rocephin and Zithromax no changes are required. Labs Laboratory Tests 06/08/17 09:55 NOELLE SALGADO MD Jun 09, 2017 13:57
[2017-06-09] MEDS ORDERED: ASPIRIN E.C. 325 MG (ECOTRIN) TABLET PO PRN (14:00)
[2017-06-09] MEDS ORDERED: RT-ALBUTEROL/IPRATROPIUM 3 ML (DUONEB) VIAL IH PRN (14:00)
[2017-06-09] MEDS ORDERED: lisINopril 20 MG (ZESTRIL) TAB PO NR (18:15)
[2017-06-09] MEDS: RT-ALBUTEROL/IPRATROPIUM 3 ML (DUONEB) VIAL IH SCH ×2 (18:28→21:58)
[2017-06-10] VITALS: BP 154/82
[2017-06-10] MEDS: methylPREDNISolone 40 MG/ML (Solu-MEDROL) VIAL IV SCH ×4 (00:14→17:31)
[2017-06-10] MEDS: NS IV 1000 ML 1,000 ML IV SCH ×4 (00:59→21:38)
[2017-06-10] MEDS: RT-ALBUTEROL/IPRATROPIUM 3 ML (DUONEB) VIAL IH SCH ×6 (02:59→21:46)
[2017-06-10 04:00] VITALS: BP 149/72
[2017-06-10] MEDS: OSELTAMIVIR 75 MG (TAMIFLU) BOX OF 10 PO SCH ×2 (07:43→21:06)
[2017-06-10] MEDS: lisINopril 20 MG (ZESTRIL) TAB PO SCH (07:44)
[2017-06-10] MEDS: AZITHROMYCIN 250 MG TAB (ZITHROMAX) PO SCH (07:44)
[2017-06-10 08:36] VITALS: BP 148/80
--- NOTE | 2017-06-10 11:42 | Progress Note-Hospitalist ---
Progress Note HPI/CC on Admission The patient is a 66-year-old white male presents to the emergency room this morning with respiratory distress. He reported that he had been sick for 2-3 days. Symptoms seem to be increasing and consisted of cough and dyspnea fever and wheezing. He also reported that he had run out of his albuterol for use in his home nebulizer. He reports he continues to smoke a few cigarettes but previously had smoked up to 2 and half packs per day. 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 He then had a needle biopsy of a left lung mass which was thought to be suspicious for adenocarcinoma but not confirmed. This mass has remained stable in size. In addition to a fever of 101+ he had a white count of 17,000. Chest x-ray did not confirm a pneumonia. Progress Notes/Assess & Plan Date Seen 06/10/17 Time Seen by Provider: 11:30 Diagonsis/Assessment & Plan Patient doing well and walking in the halls without oxygen Will order home oxygen since he does not have that at home He continues to smoke even after lung cancer diagnosed in that was resected and he has a mass in his lung that has been essentially unchanged for several years Checked meds and labs Could not understand why Dr. Wu had not seen him and apparently she had terminated him and he did not understand that so that will be clarified and he will remain on the hospitalist service No fever, vital signs stable, pleasant, improved Regular rate and rhythm, clear to auscultation bilaterally except for subtle wheezing on end expiratory phase No edema Assessment: Acute exacerbation of COPD with strep pneumo on sputum culture Continued smoker Hypertension Lung cancer status post resection due to adenocarcinoma and continues to smoke Lung mass that is unchanged on chest x-ray and CT scan Plan: Continue IV antibiotics Home O2 evaluation maintain IV steroids Monitor closely SANA ESPINAL DO Jun 10, 2017 11:42
[2017-06-10 12:30] VITALS: BP 166/81
[2017-06-10] MEDS: cefTRIAXone 1 GM/NS 50 ML IVPB IV SCH ×2 (12:43)
[2017-06-10 16:03] VITALS: BP 126/76
[2017-06-10 19:47] VITALS: BP 148/77
[2017-06-11] VITALS: BP 168/84
[2017-06-11] MEDS: methylPREDNISolone 40 MG/ML (Solu-MEDROL) VIAL IV SCH ×3 (00:25→12:40)
[2017-06-11] MEDS: NS IV 1000 ML 1,000 ML IV SCH ×2 (00:26→04:24)
[2017-06-11] MEDS: RT-ALBUTEROL/IPRATROPIUM 3 ML (DUONEB) VIAL IH SCH ×3 (01:48→10:23)
[2017-06-11 04:00] VITALS: BP 174/90
[2017-06-11 06:47] LABS: BASOPHILS % (AUTO) 0 % (0-10); EOSINOPHILS % (AUTO) 0 % (0-10); HEMATOCRIT 39 % (40-54); HEMOGLOBIN 13.3 G/DL (13.3-17.7); LYMPHOCYTES # (AUTO) 0.6 X 10^3 (1.0-4.0); LYMPHOCYTES % (AUTO) 6 % (12-44); MEAN CORPUSCULAR HEMOGLOBIN 32 PG (25-34); MEAN CORPUSCULAR HGB CONC 34 G/DL (32-36); MEAN CORPUSCULAR VOLUME 95 FL (80-99); MEAN PLATELET VOLUME 10.4 FL (7.4-10.4); MONOCYTES # (AUTO) 0.8 X 10^3 (0.0-1.0); MONOCYTES % (AUTO) 7 % (0-12); NEUTROPHILS # (AUTO) 9.3 X 10^3 (1.8-7.8); NEUTROPHILS % (AUTO) 87 % (42-75); PLATELET COUNT 211 10^3/uL (130-400); RED BLOOD COUNT 4.13 10^6/uL (4.35-5.85); RED CELL DISTRIBUTION WIDTH 12.7 % (10.0-14.5); WHITE BLOOD COUNT 10.8 10^3/uL (4.3-11.0)
[2017-06-11 07:13] LABS: ALANINE AMINOTRANSFERASE 19 U/L (0-55); ALBUMIN 3.5 GM/DL (3.2-4.5); ALKALINE PHOSPHATASE 67 U/L (40-136); BILIRUBIN,TOTAL 0.2 MG/DL (0.1-1.0); BUN/CREATININE RATIO 12; CARBON DIOXIDE 32 MMOL/L (21-32); CHLORIDE 99 MMOL/L (98-107); CREATININE SERUM 0.65 MG/DL (0.60-1.30); GFR ESTIMATED > 60; GLUCOSE 144 MG/DL (70-105); POTASSIUM 2.9 MMOL/L (3.6-5.0); SODIUM 142 MMOL/L (135-145); TOTAL PROTEIN 5.4 GM/DL (6.4-8.2)
[2017-06-11 08:00] VITALS: BP 165/80
[2017-06-11] MEDS: lisINopril 20 MG (ZESTRIL) TAB PO SCH (09:08)
[2017-06-11] MEDS: OSELTAMIVIR 75 MG (TAMIFLU) BOX OF 10 PO SCH (09:09)
[2017-06-11] MEDS ORDERED: CEFD300C3 PO (11:03)
[2017-06-11] MEDS ORDERED: PRED10TA22 PO (11:03)
[2017-06-11] MEDS ORDERED: LISI-552 PO (11:03)
[2017-06-11] MEDS ORDERED: IPRA3AMP IH (11:03)
--- NOTE | 2017-06-11 11:04 | Discharge Summary-Hospitalist ---
Diagnosis/Chief Complaint Date of Admission Jun 08, 2017 at 11:01 Date of Discharge Discharge Date: Jun 11, 2017 Admission Diagnosis Fever/leukocytosis, suspect sepsis Discharge Diagnosis Note from 06/11/16: Patient doing well and ready to go home Will order home oxygen since he does not have that at home at 2L/min Checked meds and labs Pt will need to establish with a new PCP since Dr Wu had terminated him due to no show clinic appts No fever, vital signs stable, pleasant, improved Regular rate and rhythm, clear to auscultation bilaterally except for subtle wheezing on end expiratory phase No edema Assessment: Acute exacerbation of COPD with strep pneumo on sputum culture Continued smoker Hypertension Lung cancer status post resection due to adenocarcinoma and continues to smoke Lung mass that is unchanged on chest x-ray and CT scan Plan: Home O2 evaluation Monitor closely PO steroids Discharge Summary Discharge Physical Examination Allergies: Coded Allergies: No Known Drug Allergies (Unverified , 12/11/13) Vitals & I&Os Vital Signs Date Time Temp Pulse Resp B/P (MAP) Pulse Ox O2 Delivery O2 Flow Rate FiO2 06/11/17 10:10 92 Room Air 2.00 06/11/17 04:00 97.3 94 24 174/90 (118) Hospital Course hospital course: Patient had an uneventful hospital course he was admitted for exacerbation of COPD and infiltrate placed on empiric antibiotics and steroids and Tamiflu due to flulike illness. Primary care provider Dr. Wu had terminated him in the past so he remained on the hospitalist service. Smoking cessation counseled and home O2 was needed that was ordered at time of discharge along with remaining antibiotic days and steroid taper. Overall he improved and was able to go home as planned and will obtain a new primary care provider at time of discharge. Labs (last 24 hrs) Laboratory Tests 06/11/17 05:24: White Blood Count 10.8, Red Blood Count 4.13L, Hemoglobin 13.3, Hematocrit 39L, Mean Corpuscular Volume 95, Mean Corpuscular Hemoglobin 32, Mean Corpuscular Hemoglobin Concent 34, Red Cell Distribution Width 12.7, Platelet Count 211, Mean Platelet Volume 10.4, Neutrophils (%) (Auto) 87H, Lymphocytes (%) (Auto) 6L , Monocytes (%) (Auto) 7, Eosinophils (%) (Auto) 0, Basophils (%) (Auto) 0, Neutrophils # (Auto) 9.3H, Lymphocytes # (Auto) 0.6L, Monocytes # (Auto) 0.8, Eosinophils # (Auto) 0.0, Basophils # (Auto) 0.0, Sodium Level 142, Potassium Level 2.9L, Chloride Level 99, Carbon Dioxide Level 32, Anion Gap 11, Blood Urea Nitrogen 8, Creatinine 0.65, Estimat Glomerular Filtration Rate > 60, BUN/ Creatinine Ratio 12, Glucose Level 144H, Calcium Level 9.0, Total Bilirubin 0.2 , Aspartate Amino Transf (AST/SGOT) 19, Alanine Aminotransferase (ALT/SGPT) 19, Alkaline Phosphatase 67, Total Protein 5.4L, Albumin 3.5 Microbiology 06/08/17 Blood Culture - Preliminary, Resulted No growth 06/08/17 Gram Stain - Final, Resulted 06/08/17 Sputum Culture - Preliminary, Resulted Streptococcus Pneumoniae Escherichia Coli See Comments Pending Labs Laboratory Tests 06/11/17 05:24: White Blood Count 10.8, Red Blood Count 4.13, Hemoglobin 13.3, Hematocrit 39, Mean Corpuscular Volume 95, Mean Corpuscular Hemoglobin 32, Mean Corpuscular Hemoglobin Concent 34, Red Cell Distribution Width 12.7, Platelet Count 211, Mean Platelet Volume 10.4, Neutrophils (%) (Auto) 87, Lymphocytes (%) (Auto) 6, Monocytes (%) (Auto) 7, Eosinophils (%) (Auto) 0, Basophils (%) (Auto) 0, Neutrophils # (Auto) 9.3, Lymphocytes # (Auto) 0.6, Monocytes # (Auto) 0.8, Eosinophils # (Auto) 0.0, Basophils # (Auto) 0.0, Sodium Level 142, Potassium Level 2.9, Chloride Level 99, Carbon Dioxide Level 32, Anion Gap 11, Blood Urea Nitrogen 8, Creatinine 0.65, Estimat Glomerular Filtration Rate > 60, BUN/ Creatinine Ratio 12, Glucose Level 144, Calcium Level 9.0, Total Bilirubin 0.2, Aspartate Amino Transf (AST/SGOT) 19, Alanine Aminotransferase (ALT/SGPT) 19, Alkaline Phosphatase 67, Total Protein 5.4, Albumin 3.5 Discharge Home Medications: Active Scripts Active Prednisone 10 Mg Tab.ds.pk 10 Mg PO DAILY Take 6 tabs(60mg)daily,decrease by 1 tab(10MG)daily. Cefdinir 300 Mg Capsule 300 Mg PO BID Lisinopril 20 Mg Tablet 20 Mg PO DAILY Iprat-Albut 0.5-3(2.5) mg/3 ml (Ipratropium/Albuterol Sulfate) 3 Ml Ampul.neb 3 Ml IH BID PRN Reported Aspirin EC (Aspirin) 325 Mg Tablet.dr 325 Mg PO DAILY PRN Instructions to patient/family Please see electronic discharge instructions given to patient. Clinical Quality Measures DVT/VTE Risk/Contraindication: Risk Factor Score Per Nursin RFS Level Per Nursing on Admit: 4+=Very High SANA ESPINAL DO Jun 11, 2017 11:04
[2017-06-11 12:30] VITALS: BP 148/85
[2017-06-11] MEDS: cefTRIAXone 1 GM/NS 50 ML IVPB IV SCH ×2 (13:49)
== END 2017-06-11 14:30 | disposition home or self-care (01) | DRG 192 ==
LOC: EDUNIT# 09:03 → ER 09:05 → 4TH 11:01
PROVIDERS: ADMIT Internal Medicine; ATTEND Internal Medicine
DX: J43.9 Emphysema, unspecified (principal); B95.3 Streptococcus pneumoniae as the cause of diseases classified elsewhere; R06.03 Acute respiratory distress; F17.210 Nicotine dependence, cigarettes, uncomplicated; I10 Essential (primary) hypertension; I25.10 Atherosclerotic heart disease of native coronary artery without angina pectoris; R91.8 Other nonspecific abnormal finding of lung field; Z85.118 Personal history of other malignant neoplasm of bronchus and lung; Z90.2 Acquired absence of lung [part of]; Z95.5 Presence of coronary angioplasty implant and graft
CPT/HCPCS: 36415; 71045; 80053; 83605; 85007; 85025; 85027; 85610; 85730; 86141; 87040; 87070; 87077; 87186; 87205; 87804; 94640; 94664; 94760; 94761

== ENCOUNTER 2018-01-11 19:03 | Inpatient (IN) | payer MEDICARE ==
[~2018-01-11] VITALS: Ht 177.8 cm; Wt 77.5 kg
[~2018-01-11 19:03] MED LIST changes: +ASPI325T32 PO; -IPRA3AMP IH; +IPRA3AMP31 IH; +PRED10TA22 PO
[2018-01-11] MEDS ORDERED: LACTATED RINGERS 1,000 ML IV ONE (19:06)
[2018-01-11] MEDS ORDERED: methylPREDNISolone 125 MG (Solu-MEDROL) VIAL IV STA (19:08)
[2018-01-11 19:13] LABS: BASOPHILS % (AUTO) 0 % (0-10); EOSINOPHILS # (AUTO) 0.1 10^3/uL (0.0-0.3); EOSINOPHILS % (AUTO) 2 % (0-10); HEMATOCRIT 43 % (40-54); HEMOGLOBIN 16.3 G/DL (13.3-17.7); LYMPHOCYTES % (AUTO) 25 % (12-44); MEAN CORPUSCULAR HEMOGLOBIN 32 PG (25-34); MEAN CORPUSCULAR HGB CONC 38 G/DL (32-36); MEAN CORPUSCULAR VOLUME 84 FL (80-99); MEAN PLATELET VOLUME 10.5 FL (7.4-10.4); MONOCYTES # (AUTO) 0.7 X 10^3 (0.0-1.0); MONOCYTES % (AUTO) 9 % (0-12); NEUTROPHILS # (AUTO) 5.1 X 10^3 (1.8-7.8); NEUTROPHILS % (AUTO) 64 % (42-75); PLATELET COUNT 242 10^3/uL (130-400); RED BLOOD COUNT 5.16 10^6/uL (4.35-5.85); RED CELL DISTRIBUTION WIDTH 13.5 % (10.0-14.5)
[2018-01-11] MEDS ORDERED: RT-ALBUTEROL/IPRATROPIUM 3 ML (DUONEB) VIAL INH ONE (19:15)
[2018-01-11] MEDS ORDERED: DEXAMETHASONE 4 MG/ML SDV (DECADRON) IH ONE (19:15)
--- NOTE | 2018-01-11 19:24 | ED General ---
General Stated Complaint: FALL/WEAK History of Present Illness Date Seen by Provider: Jan 11, 2018 Time Seen by Provider: 18:56 Initial Comments PT ARRIVES VIA EMS FROM HOME CALLED EMS BECAUSE HE COULDN'T GET UP PT "FELL" BY THE COUCH--WAS TOO WEAK TO STAND AND TOO WEAK TO GET UP ON HIS OWN. LAID ON THE FLOOR FOR A FEW HOURS THIS AFTERNOON BEFORE CALLING EMS NO INJURY FROM THE FALL Allergies and Home Medications Allergies Coded Allergies: No Known Drug Allergies (Unverified , 12/11/13) Home Medications Aspirin 325 Mg Tablet.dr, 325 MG PO DAILY PRN for PAIN-MILD, (Reported) Cefdinir 300 Mg Capsule, 300 MG PO BID Prescribed by: SANA ESPINAL on 06/11/17 1103 Ipratropium/Albuterol Sulfate 3 Ml Ampul.neb, 3 ML IH BID PRN for SHORTNESS OF BREATH Prescribed by: SANA ESPINAL on 06/11/17 1103 Lisinopril 20 Mg Tablet, 20 MG PO DAILY Prescribed by: SANA ESPINAL on 06/11/17 1103 Prednisone 10 Mg Tab.ds.pk, 10 MG PO DAILY Take 6 tabs(60mg)daily,decrease by 1 tab(10MG)daily. Prescribed by: SANA ESPINAL on 06/11/17 1103 Past Hqrckes-Inwzsb-Tciqty Hx Patient Social History Alcohol Beverage of Choice: Beer Type Used: Cigarettes 2nd Hand Smoke Exposure: No Recent Foreign Travel: No Contact w/Someone Who Travel: No Recent Hopitalizations: No Seasonal Allergies Seasonal Allergies: No Past Medical History Surgeries: Yes (1/3 OF RIGHT LUNG REMOVED FOR CANCER - AND TEETH REMOVED FOR DENTURES) Lobectomy, Tonsillectomy Respiratory: Yes (LUNG RESECTION, left upper lung mass) Pneumonia, COPD, Emphysema Currently Using CPAP: No Currently Using BIPAP: No Cardiac: Yes ( STENTS X2) Coronary Artery Disease, Hypertension Neurological: No Reproductive Disorders: No Genitourinary: No Gastrointestinal: No Musculoskeletal: No Endocrine: No HEENT: Yes Cataract Loss of Vision: Bilateral Hearing Impairment: Denies Cancer: Yes Lung Did You Recieve Any Treatments: Yes What Type of Treatment Did You: Surgical Intervention Psychosocial: No Integumentary: No Blood Disorders: No Adverse Reaction/Blood Tranf: No Family Medical History Cancer (brother had lung cancer) 19 FATHER G8 BROTHER Cancer of colon 19 FATHER Family history: Allergy G8 BROTHER Hearing loss 19 FATHER Malignant neoplasm of lung G8 BROTHER Parkinson's disease 19 MOTHER Heart Disease, Cancer, Hypertension, Lung Disease Physical Exam Vital Signs Capillary Refill : Height, Weight, BMI Height: 5'8.00" Weight: 168lbs. 7.0oz. 76.135378oy; 25.6 BMI Method:Stated Progress/Results/Core Measures Suspected Sepsis SIRS Temperature: Pulse: Respiratory Rate: Laboratory Tests 01/11/18 19:05: White Blood Count 8.0 Blood Pressure / Mean: Laboratory Tests 01/11/18 19:05: Platelet Count 242 Results/Orders Lab Results Laboratory Tests Test 01/11/18 19:05 Range/Units White Blood Count 8.0 4.3-11.0 10^3/uL Red Blood Count 5.16 4.35-5.85 10^6/uL Hemoglobin 16.3 13.3-17.7 G/DL Hematocrit 43 40-54 % Mean Corpuscular Volume 84 80-99 FL Mean Corpuscular Hemoglobin 32 25-34 PG Mean Corpuscular Hemoglobin Concent 38 H 32-36 G/DL Red Cell Distribution Width 13.5 10.0-14.5 % Platelet Count 242 130-400 10^3/uL Mean Platelet Volume 10.5 H 7.4-10.4 FL Neutrophils (%) (Auto) 64 42-75 % Lymphocytes (%) (Auto) 25 12-44 % Monocytes (%) (Auto) 9 0-12 % Eosinophils (%) (Auto) 2 0-10 % Basophils (%) (Auto) 0 0-10 % Neutrophils # (Auto) 5.1 1.8-7.8 X 10^3 Lymphocytes # (Auto) 2.0 1.0-4.0 X 10^3 Monocytes # (Auto) 0.7 0.0-1.0 X 10^3 Eosinophils # (Auto) 0.1 0.0-0.3 10^3/uL Basophils # (Auto) 0.0 0.0-0.1 10^3/uL My Orders Orders - MADDIE CHEN DO Saline Lock/Iv-Start (01/11/18 19:06) Ekg Tracing (01/11/18 19:06) O2 (01/11/18 19:06) Monitor-Rhythm Ecg Trace Only (01/11/18:) Acetaminophen (01/11/18:) Alcohol (01/11/18:06) BNP (01/11/18:) Cbc With Automated Diff (01/11/18:) Comprehensive Metabolic Panel (01/11/18:) Creatine Kinase (01/11/18:) Creatine Kinase Mb (01/11/18:06) Drug Screen Stat (Urine) (01/11/18:) Lactic Acid Analyzer (01/11/18:) Magnesium (01/11/18:) Protime With Inr (01/11/18:) Partial Thromboplastin Time (01/11/18:) Thyroid Analyzer (01/11/18:) Troponin I (01/11/18:) Ua Culture If Indicated (01/11/18:) Blood Culture (01/11/18:06) Chest 1 View, Ap/Pa Only (01/11/18:) Ct Head Wo-R/O Stroke (01/11/18:06) Saline Lock/Iv-Start (01/11/18:) Lactated Ringers (Lr 1000 Ml Iv Solution (01/11/18:06) Albuterol/Ipra Inhalation Soln (Duoneb I (01/11/18 19:15) Dexamethasone Injection (Decadron Inject (01/11/18 19:15) Rt Request For Service (01/11/18 19:08) Methylprednisolone Sod Succ (Solu-Medrol (01/11/18 19:08) Svn Small Volume Nebulizer (01/11/18 19:08) Vital Signs/I&O Capillary Refill : Departure Departure-Patient Inst. Referrals: NO,LOCAL PHYSICIAN (PCP/Family) Primary Care Physician MADDIE CHEN DO Jan 11, 2018 19:24
[2018-01-11 19:27] LABS: INR 0.9 (0.8-1.4); PROTHROMBIN TIME PATIENT 12.4 SEC (12.2-14.7)
[2018-01-11 20:04] LABS: ALANINE AMINOTRANSFERASE 96 U/L (0-55); ALBUMIN 4.5 GM/DL (3.2-4.5); ALKALINE PHOSPHATASE 66 U/L (40-136); BILIRUBIN,TOTAL 1.7 MG/DL (0.1-1.0); BUN/CREATININE RATIO 7; CALCIUM 9.2 MG/DL (8.5-10.1); CARBON DIOXIDE 24 MMOL/L (21-32); CHLORIDE 76 MMOL/L (98-107); CREATINE KINASE 193 U/L (30-200); CREATININE SERUM 0.74 MG/DL (0.60-1.30); GFR ESTIMATED > 60; GLUCOSE 91 MG/DL (70-105); MAGNESIUM 2.6 MG/DL (1.8-2.4); POTASSIUM 5.1 MMOL/L (3.6-5.0)
[2018-01-11 20:11] LABS: ACETAMINOPHEN < 10 UG/ML (10-30); SODIUM 116 MMOL/L (135-145)
[2018-01-11 20:23] LABS: CREATINE KINASE MB 5.8 NG/ML (<6.6); TSH (THYROID ANALYZER) 0.85 UIU/ML (0.35-4.94)
--- NOTE | 2018-01-11 20:33 | Diagnostic Imaging Report ---
PATIENT HISTORY: Shortness of air. History of lung cancer. TECHNIQUE: Single frontal view of the chest COMPARISON: 06/08/2017 FINDINGS: Lung volumes are large. There is a dense mass in the left perihilar region, which appears mildly increased in size. No focal consolidation is seen. There is no significant pleural effusion or pneumothorax. The cardiac silhouette is upper normal in size. There is aortic atherosclerosis. IMPRESSION: 1. Mildly increased size of the left perihilar mass since the prior exam. No new consolidation is seen. Dictated by: Dictated on workstation # [id number]
--- NOTE | 2018-01-11 20:38 | Diagnostic Imaging Report ---
PATIENT HISTORY: Fall, weakness. History of cancer. TECHNIQUE: Noncontrast axial CT of the head COMPARISON: None FINDINGS: The ventricles and cortical sulci are diffusely prominent. There is no midline shift or mass effect identified. There is no extra axial or intraparenchymal hemorrhage seen. Focal areas of decreased attenuation are seen in the subcortical and periventricular white matter. These likely represent chronic small vessel ischemic changes. No CT evidence of acute territorial ischemia seen. There is calcific atherosclerosis. The bony calvarium is intact. The paranasal sinuses are clear. IMPRESSION: 1. No acute intracranial hemorrhage. No focal mass. No CT evidence of acute territorial ischemia. 2. Nonspecific white matter changes most likely representing small vessel ischemic disease. 3. Generalized parenchymal volume loss. Findings discussed with MADDIE CHEN DO by Dr. De Anda, on 01/11/2018 8:35 PM. Dictated by: Dictated on workstation # [id number]
[2018-01-11 21:26] LABS: BILIRUBIN,URINE NEGATIVE (NEGATIVE); CLARITY,URINE CLEAR; COLOR,URINE YELLOW; GLUCOSE, URINE (UA) NEGATIVE (NEGATIVE); KETONES,URINE NEGATIVE (NEGATIVE); LEUKOCYTE ESTERASE ,URINE NEGATIVE (NEGATIVE); NITRITE,URINE NEGATIVE (NEGATIVE); PH,URINE 6 (5-9); PROTEIN,URINE NEGATIVE (NEGATIVE); UROBILINOGEN,URINE NORMAL (NORMAL)
[2018-01-11 21:37] LABS: SQUAMOUS EPITHELIAL CELL,UR RARE /HPF
[2018-01-11 21:38] LABS: AMPHETAMINE SCREEN, URINE NEGATIVE (NEGATIVE); BARBITURATE SCREEN URINE NEGATIVE (NEGATIVE); BENZODIAZEPINES SCREEN URINE NEGATIVE (NEGATIVE); CANNABINOID SCREEN, URINE NEGATIVE (NEGATIVE); COCAINE SCREEN URINE NEGATIVE (NEGATIVE); METHADONE STAT NEGATIVE (NEGATIVE); METHAMPHETAMINE SCREEN URINE S NEGATIVE (NEGATIVE); OPIATE SCREEN URINE NEGATIVE (NEGATIVE); OXYCODONE STAT NEGATIVE (NEGATIVE); PROPOXYPHENE STAT NEGATIVE (NEGATIVE); TRICYCLIC ANTIDEPRESSANTS SCRE NEGATIVE (NEGATIVE)
[2018-01-11] MEDS ORDERED: 1/2 NS IV SOLUTION 1,000 ML IV PRN (23:03)
--- OUTSIDE RECORDS SUMMARY | 2018-01-11 23:05 | XMS REPORT | Clinical Summary ---
Author Author [facility] Organization [facility] Address Unknown Phone Unavailable Care Team Providers Care Emotional Support Teacher Name Role Phone Manju Wu MD PCP Eric Simmons MD Unavailable Nu Cazares RN Unavailable Unavailable Anne Marie Herrera RN Unavailable Unavailable Aj Short MD Unavailable Source Comments Some departments are not documenting in the electronic medical record. If you do not see the information that you expected, contact Release of Information in the Health Information Management department at [phone] for further assistance in locating additional records.[facility] Allergies No Known Allergies Current [...] PHYSICAL (COMPREHENSIVE) 1959 EXAM PERTUSSIS VACCINE 1963 HIV SCREENING 1967 TETANUS VACCINE 1969 COLORECTAL CANCER 2002 SCREENING SHINGLES RECOMBINANT 2002 VACCINE (1 of 2) ABDOMINAL AORTIC ANEURYSM 2017 SCREENING PNEUMONIA (PCV13/PPSV23) 2017 VACCINES (1 of 2 - PCV13) INFLUENZA VACCINE 03/08/2018 Results Not on filefrom Last 3 Months
--- OUTSIDE RECORDS SUMMARY | 2018-01-11 23:07 | XMS REPORT | Continuity of Care Document ---
Author Author [facility] Organization [facility] Address Unknown Phone Unavailable Allergies Active Description Code Type Severity Reaction Onset Reported/Identified Relationship to Patient Clinical Status Yes No Known Drug Allergies [id number] Drug Allergy Unknown N/A 12/11/2013 Medications There [...] Ot 496 CHR AIRWAY OBSTRUCT NEC 12/14/2013 LORI LOPEZ DO S Ot 759.6 HAMARTOSES NEC 12/14/2013 HILLARY [...] CCDS Ot I25.10 ATHSCL HEART DISEASE OF [place] CORONARY 07/11/2015 RADHA LUGO FACC, ALI FACP CCDS Ot I48.91 UNSPECIFIED ATRIAL FIBRILLATION 07/11/2015 RADHA LUGO FACC, ALI FACP CCDS Ot R06.00 DYSPNEA, UNSPECIFIED 07/11/2015 RADHA LUGO FACC, CRISTIAN FACP CCDS Ot R55 SYNCOPE AND COLLAPSE 07/11/2015 RADHA LUGO FACC, ALI FACP CCDS Ot Z79.01 BIOMEDICAL INSTRUMENT TECHNICIAN (CURRENT) USE OF ANTICOAGULANT 07/11/2015 RADHA LUGO [facility] Ot Z79.899 OTHER BIOMEDICAL INSTRUMENT TECHNICIAN (CURRENT) DRUG THERAPY 11/21/2015 JOHN HOROWITZ LORI S Ot E87.1 HYPO-OSMOLALITY AND HYPONATREMIA 11/21/2015 JOHN HOROWITZ LORI S Ot F10.239 ALCOHOL DEPENDENCE WITH WITHDRAWAL, UNSP 11/21/2015 JOHN HOROWITZ LORI S Ot F17.210 NICOTINE DEPENDENCE, CIGARETTES, UNCOMPL 11/21/2015 JOHN HOROWITZ LORI S Ot I10 ESSENTIAL (PRIMARY) HYPERTENSION 11/21/2015 JOHN HOROWITZ LORI S Ot I25.10 ATHSCL HEART DISEASE OF [place] CORONARY 11/21/2015 JOHN HOROWITZ LORI S Ot J18.9 PNEUMONIA, UNSPECIFIED ORGANISM 11/21/2015 JOHN HOROWITZ LORI S Ot Z85.118 PERSONAL HISTORY OF MALIGNANT NEOPLASM O 11/21/2015 JOHN HOROWITZ LORI S Ot Z95.5 PRESENCE OF CORONARY ANGIOPLASTY IMPLANT 11/27/2015 HILLARY LOPEZ DOQUELINE S Ot 162.9 MAL DAYRON BRONCH/LUNG NOS 11/27/2015 HILLARY LOPEZ DOQUELINE S Ot 512.89 OTHER PNEUMOTHORAX 11/27/2015 HILLARY LOPEZ DOQUELINE S Ot 793.19 OTHER NONSPECIFIC ABNORMAL FINDING [...] SEBACEOUS CYST 11/27/2015 Ot 786.6 CHEST SWELLING/MASS/LUMP 06/08/2017 HILLARY LOPEZ DOQUELINE S Ot 162.9 MAL DAYRON BRONCH/LUNG NOS 06/08/2017 HILLARY LOPEZ DOQUELINE S Ot 512.89 OTHER PNEUMOTHORAX 06/08/2017 HILLARY LOPEZ DOQUELINE S Ot 793.19 OTHER NONSPECIFIC ABNORMAL FINDING OF [place] 06/08/2017 CHAZ PUGA MD Ot 786.6 CHEST SWELLING/MASS/LUMP 06/08/2017 YOBANI COOL DO Ot 518.89 OTHER DISEASES OF LUNG, NEC 06/08/2017 YOBANI COOL DO Ot 793.19 OTHER NONSPECIFIC ABNORMAL FINDING OF [place] 06/08/2017 YOBANI COOL DO Ot V15.82 HISTORY OF TOBACCO USE 06/08/2017 Ot 305.1 TOBACCO USE DISORDER 06/08/2017 Ot 706.2 SEBACEOUS CYST 06/08/2017 Ot 786.6 CHEST SWELLING/MASS/LUMP 06/11/2017 SANA ESPINAL DO Ot B95.3 STREPTOCOCCUS PNEUMONIAE CAUSING DISEASE 06/11/2017 SANA ESPINAL DO Ot F17.210 NICOTINE DEPENDENCE, CIGARETTES, UNCOMPL 06/11/2017 SNAA ESPINAL DO Ot I10 ESSENTIAL (PRIMARY) HYPERTENSION 06/11/2017 SANA ESPINAL DO Ot I25.10 ATHSCL HEART DISEASE OF [place] CORONARY 06/11/2017 SANA ESPINAL DO Ot J43.9 EMPHYSEMA, UNSPECIFIED 06/11/2017 SANA ESPINAL DO Ot R06.03 ACUTE RESPIRATORY DISTRESS 06/11/2017 SANA ESPINAL DO Ot R91.8 OTHER NONSPECIFIC ABNORMAL FINDING OF [place] 06/11/2017 SANA ESPINAL DO Ot Z85.118 PERSONAL HISTORY OF MALIGNANT NEOPLASM O 06/11/2017 SANA ESPINAL DO Ot Z90.2 ACQUIRED ABSENCE OF LUNG [PART OF] 06/11/2017 SANA ESPINAL DO Ot Z95.5 PRESENCE OF CORONARY ANGIOPLASTY IMPLANT 06/12/2017 LORI LOPEZ DO S Ot 162.9 MAL DAYRON BRONCH/LUNG NOS 06/12/2017 SHIRLENE LOPEZ DOLINE S Ot 512.89 OTHER PNEUMOTHORAX 06/12/2017 LORI LOPEZ DO S Ot 793.19 OTHER NONSPECIFIC ABNORMAL FINDING OF [place] 06/12/2017 CHAZ PUGA MD Ot 786.6 CHEST SWELLING/MASS/LUMP 06/12/2017 YOBANI COOL DO Ot 518.89 OTHER DISEASES OF LUNG, NEC 06/12/2017 YOBANI OCOL DO Ot 793.19 OTHER NONSPECIFIC ABNORMAL FINDING OF [place] 06/12/2017 YOBANI COOL DO Ot V15.82 HISTORY OF TOBACCO USE 06/12/2017 Ot 305.1 TOBACCO USE DISORDER 06/12/2017 Ot 706.2 SEBACEOUS CYST 06/12/2017 Ot 786.6 CHEST SWELLING/MASS/LUMP 09/24/2017 JOHN LORI HOROWITZ S Ot 162.9 MAL ADYRON BRONCH/LUNG NOS 09/24/2017 JOHN HOROWITZ, LORI S Ot 512.89 OTHER PNEUMOTHORAX 09/24/2017 LORI LOPEZ DO S Ot 793.19 OTHER NONSPECIFIC ABNORMAL FINDING OF [place] 09/24/2017 CHAZ PUGA MD Ot 786.6 CHEST SWELLING/MASS/LUMP 09/24/2017 YOBANI COOL DO Ot 518.89 OTHER DISEASES OF LUNG, NEC 09/24/2017 YOBANI COOL DO Ot 793.19 OTHER NONSPECIFIC ABNORMAL FINDING OF [place] 09/24/2017 YOBANI COOL DO Ot V15.82 HISTORY OF TOBACCO USE 09/24/2017 Ot 305.1 TOBACCO USE DISORDER 09/24/2017 Ot 706.2 SEBACEOUS CYST 09/24/2017 Ot 786.6 CHEST SWELLING/MASS/LUMP Procedures There is no data. Results Test Result Range Influenza virus A and B antigen detection - 06/08/17 09:24 FLU RESULT NEGATIVE FOR INFLUENZA A AND B ANTIGENS BY [facility] Complete blood count (CBC) with automated [...] granules detection by light microscopy 1+ NRG Bacterial blood culture - 06/08/17 09:55 Bacterial blood culture NG NRG Bacterial blood culture - 06/08/17 10:12 Bacterial blood culture NG NRG Sputum Gram stain - 06/08/17 11:25 Sputum Gram stain Streptococcus pneumoniae NRG Bacterial sputum culture - 06/08/17 11:25 FREE TEXT EXTERNAL SENSITIVITY REPORTED 06:35 NRG QUANTITY OF GROWTH . NRG Bacterial sputum culture SEE [facility] Bacterial susceptibility panel - 06/08/17 11:25 Gentamicin susceptibility test by minimum inhibitory concentration < = NRG Trimethoprim/sulfamethoxazole susceptibility test by minimum inhibitoryconcentration S NRG Ampicillin susceptibility test by minimum inhibitory concentration 8 NRG Tobramycin susceptibility test by minimum inhibitory concentration < = NRG Cefazolin susceptibility test by minimum inhibitory concentration < = NRG Ceftriaxone susceptibility test by minimum inhibitory concentration <= NRG Ampicillin/sulbactam susceptibility test by minimum inhibitory concentration <= NRG Piperacillin/tazobactam susceptibility test by minimum inhibitory concentration S NRG Ciprofloxacin susceptibility test by minimum inhibitory concentration <= NRG Meropenem susceptibility test by minimum inhibitory concentration < = NRG Aztreonam susceptibility test by minimum inhibitory concentration < = NRG Extended spectrum beta lactamase (ESBL) producing bacteria susceptibility test by minimum inhibitory concentration - NRG Complete blood count (CBC) with automated white blood cell (WBC) differential - 06/11/17 05:24 Blood leukocytes automated count (number/volume) 10.8 10*3/uL 4.3-11.0 Blood erythrocytes automated count (number/volume) 4.13 10*6/uL 4.35-5.85 Venous blood hemoglobin measurement (mass/volume) 13.3 g/dL 13.3-17.7 Blood hematocrit (volume fraction) 39 % 40-54 Automated erythrocyte mean corpuscular volume 95 [foz_us] 80-99 Automated erythrocyte mean corpuscular hemoglobin (mass per erythrocyte) 32 pg 25-34 Automated erythrocyte mean corpuscular hemoglobin concentration measurement ( mass/volume) 34 g/dL 32-36 Automated erythrocyte distribution width ratio 12.7 % 10.0-14.5 Automated blood platelet count (count/volume) 211 10*3/uL 130-400 Automated blood platelet mean volume measurement 10.4 [foz_us] 7.4-10.4 Automated blood neutrophils/100 leukocytes 87 % 42-75 Automated blood lymphocytes/100 leukocytes 6 % 12-44 Blood monocytes/100 leukocytes 7 % 0-12 Automated blood eosinophils/100 leukocytes 0 % 0-10 Automated blood basophils/100 leukocytes 0 % 0-10 Blood neutrophils automated count (number/volume) 9.3 10*3 1.8-7.8 Blood lymphocytes automated count (number/volume) 0.6 10*3 1.0-4.0 Blood monocytes automated count (number/volume) 0.8 10*3 0.0-1.0 Automated eosinophil count 0.0 10*3/uL 0.0-0.3 Automated blood basophil count (count/volume) 0.0 10*3/uL 0.0-0.1 Comprehensive metabolic panel - 06/11/17 05:24 Serum or plasma sodium measurement (moles/volume) 142 mmol/L 135-145 Serum or plasma potassium measurement (moles/volume) 2.9 mmol/L 3.6-5.0 Serum or plasma chloride measurement (moles/volume) 99 mmol/L 98-107 Carbon dioxide 32 mmol/L 21-32 Serum or plasma anion gap determination (moles/volume) 11 mmol/L 5-14 Serum or plasma urea nitrogen measurement (mass/volume) 8 mg/dL 7-18 Serum or plasma creatinine measurement (mass/volume) 0.65 mg/dL 0.60-1.30 Serum or plasma urea nitrogen/creatinine mass ratio 12 NRG Serum or plasma creatinine measurement with calculation of estimated glomerular filtration rate > NRG Serum or plasma glucose measurement (mass/volume) 144 mg/dL 70-105 Serum or plasma calcium measurement (mass/volume) 9.0 mg/dL 8.5-10.1 Serum or plasma total bilirubin measurement (mass/volume) 0.2 mg/dL 0.1-1.0 Serum or plasma alkaline phosphatase measurement (enzymatic activity/volume) 67 U/L 40-136 Serum or plasma aspartate aminotransferase measurement (enzymatic activity/ volume) 19 U/L 5-34 Serum or plasma alanine aminotransferase measurement (enzymatic activity/volume ) 19 U/L 0-55 Serum or plasma protein measurement (mass/volume) 5.4 g/dL 6.4-8.2 Serum or plasma albumin measurement (mass/volume) 3.5 g/dL 3.2-4.5 Encounters ACCT No. Visit Date/Time Discharge Status Pt. Type Provider Facility Loc./Unit Complaint [id number] 06/08/2017 11:01:00 06/11/2017 14:30:00 DIS Inpatient SANA ESPINAL DO [facility] 4TH COPD EXACERBATION,HYPOXIA ,LACHOCYTOSIS [id number] 11/18/2015 00:58:00 11/21/2015 10:05:00 DIS Inpatient LORI LOPEZ DO [facility] 4TH ALCOHOL DETOX [id number] 07/10/2015 10:11:00 07/11/2015 11:15:00 DIS Outpatient RADHA LUGO FACC, CRISTIAN SAUCEDO CCDS [facility] CATH CARDIOMYOPATHY,SOB,SYNCOPE [id number] 04/29/2015 14:43:00 05/02/2015 10:55:00 DIS Inpatient LORI LOPEZ DO [facility] 4TH HYPONATREMIA [id number] 01/05/2014 13:07:00 04/05/2014 00:01:00 DIS Outpatient CHAZ PUGA MD [facility] ONC [id number] 01/23/2014 09:13:00 01/23/2014 23:59:59 CLS Outpatient YOBANI COOL DO [facility] CARD SMOKER,CHRONIC LUNG DISEASE,MASS PARENCHYMA [id number] 01/20/2014 13:54:00 01/20/2014 23:59:59 CLS Outpatient CHAZ PUGA MD [facility] RT CHRONIC LUNG DISEASE,LUNG MASS, SMOKER [id number] 12/27/2013 07:15:00 12/27/2013 23:59:59 CLS Outpatient LORI LOPEZ DO [facility] RAD LUNG NODULES [id number] 12/19/2013 18:20:00 12/21/2013 02:10:00 DIS Inpatient YOBANI COOL DO [facility] SURGICAL PNEUMOTHORAX IATROGENIC [id number] 12/11/2013 17:07:00 12/14/2013 17:40:00 DIS Inpatient LORI LOPEZ DO [facility] 4TH L LUNGMASS, HYPONATREMIA [id number] 04/06/2014 00:00:00 Document Registration
[2018-01-11] MEDS ORDERED: D5 1/2 NS 1000 ML IV SOLUTION 1,000 ML IV PRN (23:15)
[2018-01-11] MEDS ORDERED: LORazepam INJ 2 MG/ML (ATIVAN) VIAL IV PRN (23:15)
[2018-01-11] MEDS ORDERED: ANTACID SUSP 30 ML UDC (MYLANTA) PO PRN (23:15)
[2018-01-11] MEDS ORDERED: SENNA W/DOCUSATE (SENOKOT S) TABLET PO PRN (23:15)
[2018-01-11] MEDS ORDERED: LORazepam 1 MG (ATIVAN) TAB PO PRN (23:15)
[2018-01-11] MEDS ORDERED: ONDANSETRON 4 MG/2 ML (SDV) Z0FRAN IV PRN (23:15)
[2018-01-11] MEDS ORDERED: ONDANSETRON 4 MG (ZOFRAN) ORAL DISSOLVE TAB SL PRN (23:15)
[2018-01-11] MEDS ORDERED: LORazepam INJ 2 MG/ML (ATIVAN) VIAL IM/IV PRN (23:15)
[2018-01-11] MEDS: D5 NS W/KCL 20 MEQ/L 1,000 ML IV SCH (23:32)
--- OUTSIDE RECORDS SUMMARY | 2018-01-11 23:37 | XMS REPORT | Clinical Summary ---
Author Author [facility] Organization [facility] Address Unknown Phone Unavailable Care Team Providers Care Pilot Fuel Engineer Name Role Phone Manju Wu MD PCP Eric Simmons MD Unavailable Nu Cazares RN Unavailable Unavailable Anne Marie Herrera RN Unavailable Unavailable Aj Short MD Unavailable Source Comments Some departments are not documenting in the electronic medical record. If you do not see the information that you expected, contact Release of Information in the Health Information Management department at [phone] for further assistance in locating additional records.[facility] Allergies No Known Allergies Current Medications [...]
--- OUTSIDE RECORDS SUMMARY | 2018-01-11 23:39 | XMS REPORT | Continuity of Care Document ---
Author Author [facility] Organization [facility] Address Unknown Phone Unavailable Allergies Active Description Code Type Severity Reaction Onset Reported/Identified Relationship to Patient Clinical Status Yes No Known Drug Allergies [id number] Drug Allergy Unknown N/A 12/11/2013 Medications There [...] CCDS Ot I25.10 ATHSCL HEART DISEASE OF [place] CORONARY 07/11/2015 RADHA LUGO FACC, ALI FACP CCDS Ot I48.91 UNSPECIFIED ATRIAL FIBRILLATION 07/11/2015 RADHA LUGO FACC, ALI FACP CCDS Ot R06.00 DYSPNEA, UNSPECIFIED 07/11/2015 RADHA LUGO FACC, CRISTIAN FACP CCDS Ot R55 SYNCOPE AND COLLAPSE 07/11/2015 RADHA LUGO FACC, ALI FACP CCDS Ot Z79.01 NETWORKING TECHNICIAN (CURRENT) USE OF ANTICOAGULANT 07/11/2015 RADHA LUGO [facility] Ot Z79.899 OTHER NETWORKING TECHNICIAN (CURRENT) DRUG THERAPY 11/21/2015 JOHN HOROWITZ LORI S Ot E87.1 HYPO-OSMOLALITY AND HYPONATREMIA 11/21/2015 JOHN HOROWITZ LORI S Ot F10.239 ALCOHOL DEPENDENCE WITH WITHDRAWAL, UNSP 11/21/2015 JOHN HOROWITZ LORI S Ot F17.210 NICOTINE DEPENDENCE, CIGARETTES, UNCOMPL 11/21/2015 JOHN HOROWITZ LORI S Ot I10 ESSENTIAL (PRIMARY) HYPERTENSION 11/21/2015 JOHN HOROWITZ LORI S Ot I25.10 ATHSCL HEART DISEASE OF [place] CORONARY 11/21/2015 JOHN HOROWITZ LORI S Ot [...] Ot F17.210 NICOTINE DEPENDENCE, CIGARETTES, UNCOMPL 06/11/2017 SANA ESPINAL DO Ot I10 ESSENTIAL (PRIMARY) HYPERTENSION 06/11/2017 SANA ESPINAL DO Ot I25.10 ATHSCL HEART DISEASE OF [place] CORONARY 06/11/2017 SANA ESPINAL DO Ot J43.9 [...] OTHER DISEASES OF LUNG, NEC 06/12/2017 YOBANI COOL DO Ot 793.19 OTHER NONSPECIFIC ABNORMAL FINDING OF [place] 06/12/2017 YOBANI COOL DO Ot V15.82 HISTORY OF TOBACCO USE 06/12/2017 Ot 305.1 TOBACCO USE DISORDER 06/12/2017 Ot 706.2 SEBACEOUS CYST 06/12/2017 Ot 786.6 CHEST SWELLING/MASS/LUMP 09/24/2017 JOHN LORI HOROWITZ S Ot 162.9 MAL DAYR[place] BRONCH/LUNG NOS 09/24/2017 JOHN HOROWITZ, LORI S [...] FOR INFLUENZA A AND B ANTIGENS BY [facility] Complete blood count (CBC) with [...] Status Pt. Type Provider Facility Loc./Unit Complaint [id number] 06/08/2017 11:01:00 06/11/2017 14:30:00 DIS Inpatient SANA ESPINAL DO [facility] 4TH COPD EXACERBATION,HYPOXIA ,LACHOCYTOSIS [id number] 11/18/2015 00:58:00 11/21/2015 10:05:00 DIS Inpatient LORI LOPEZ DO [facility] 4TH ALCOHOL DETOX [id number] 07/10/2015 10:11:00 07/11/2015 11:15:00 DIS Outpatient RADHA LUGO FACC, CRISTIAN SAUCEDO CCDS [facility] CATH CARDIOMYOPATHY,SOB,SYNCOPE [id number] 04/29/2015 14:43:00 05/02/2015 10:55:00 DIS Inpatient LORI LOPEZ DO [facility] 4TH HYPONATREMIA [id number] 01/05/2014 13:07:00 04/05/2014 00:01:00 DIS Outpatient CHAZ PUGA MD [facility] ONC [id number] 01/23/2014 09:13:00 01/23/2014 23:59:59 CLS Outpatient YOBANI COOL DO [facility] CARD SMOKER,CHRONIC LUNG DISEASE,MASS PARENCHYMA [id number] 01/20/2014 13:54:00 01/20/2014 23:59:59 CLS Outpatient CHAZ PUGA MD [facility] RT CHRONIC LUNG DISEASE,LUNG MASS, SMOKER [id number] 12/27/2013 07:15:00 12/27/2013 23:59:59 CLS Outpatient LORI LOPEZ DO [facility] RAD LUNG NODULES [id number] 12/19/2013 18:20:00 12/21/2013 02:10:00 DIS Inpatient YOBANI COOL DO [facility] SURGICAL PNEUMOTHORAX IATROGENIC [id number] 12/11/2013 17:07:00 12/14/2013 17:40:00 DIS Inpatient LORI LOPEZ DO [facility] 4TH L LUNGMASS, HYPONATREMIA [id number] 04/06/2014 00:00:00 Document Registration
[2018-01-11 23:55] VITALS: BP 116/81
[2018-01-12] VITALS (12 sets, daily range): BP systolic 122–170; BP diastolic 58–90
[2018-01-12] MEDS: methylPREDNISolone 125 MG (Solu-MEDROL) VIAL IV SCH ×3 (01:36→13:54)
[2018-01-12] MEDS: D5 NS W/KCL 20 MEQ/L 1,000 ML IV SCH ×3 (06:23→21:11)
[2018-01-12 06:31] LABS: BASOPHILS % (AUTO) 0 % (0-10); EOSINOPHILS # (AUTO) 0.3 10^3/uL (0.0-0.3); EOSINOPHILS % (AUTO) 8 % (0-10); HEMATOCRIT 42 % (40-54); HEMOGLOBIN 15.3 G/DL (13.3-17.7); LYMPHOCYTES # (AUTO) 0.3 X 10^3 (1.0-4.0); LYMPHOCYTES % (AUTO) 9 % (12-44); MEAN CORPUSCULAR HEMOGLOBIN 31 PG (25-34); MEAN CORPUSCULAR HGB CONC 37 G/DL (32-36); MEAN CORPUSCULAR VOLUME 85 FL (80-99); MEAN PLATELET VOLUME 11.7 FL (7.4-10.4); MONOCYTES % (AUTO) 1 % (0-12); NEUTROPHILS # (AUTO) 2.6 X 10^3 (1.8-7.8); NEUTROPHILS % (AUTO) 82 % (42-75); PLATELET COUNT 122 10^3/uL (130-400); RED BLOOD COUNT 4.92 10^6/uL (4.35-5.85); RED CELL DISTRIBUTION WIDTH 13.5 % (10.0-14.5); WHITE BLOOD COUNT 3.1 10^3/uL (4.3-11.0)
[2018-01-12 06:51] LABS: ALANINE AMINOTRANSFERASE 91 U/L (0-55); ALBUMIN 4.4 GM/DL (3.2-4.5); ALKALINE PHOSPHATASE 66 U/L (40-136); BILIRUBIN,TOTAL 1.1 MG/DL (0.1-1.0); BUN/CREATININE RATIO 6; CALCIUM 9.4 MG/DL (8.5-10.1); CARBON DIOXIDE 21 MMOL/L (21-32); CHLORIDE 88 MMOL/L (98-107); CREATININE SERUM 0.77 MG/DL (0.60-1.30); GFR ESTIMATED > 60; GLUCOSE 236 MG/DL (70-105); POTASSIUM 4.2 MMOL/L (3.6-5.0); TOTAL PROTEIN 7.4 GM/DL (6.4-8.2)
[2018-01-12] MEDS: RT-ALBUTEROL/IPRATROPIUM 3 ML (DUONEB) VIAL INH SCH ×5 (06:59→22:24)
[2018-01-12 07:03] LABS: SODIUM 125 MMOL/L (135-145)
[2018-01-12] MEDS: PANTOPRAZOLE 40 MG/10 ML (PROTONIX) VIAL IV SCH (08:21)
[2018-01-12] MEDS: THIAMINE INJECTION 100 MG, FOLIC ACID INJECTION 1 MG, MAGNESIUM SULFATE 2 GM, VITAMIN M... IV SCH ×10 (08:21→08:22)
--- NOTE | 2018-01-12 08:28 | History & Physicial ---
History of Present Illness History of Present Illness Reason for visit/HPI PT IS A 67 Y/O MALE WHO IS A CLINIC PATIENT OF DR. 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 HE PRESENTED TO THE EMERGENCY DEPARTMENT WITH SEVERE WEAKNESS. HE WAS FOUND TO HAVE SEVERE HYPONATREMIA AND A NEW MASS IN HIS LUNG - WITH HX OF LUNG CANCER. HE WAS ADMITTED FOR FURTHER WORK-UP AND FOR MANAGEMENT OF HIS HYPONATREMIA. Date of Admission Jan 11, 2018 at 21:40 Date Seen by Provider: Jan 12, 2018 Time Seen by Provider: 08:15 I consulted on this patient on 01/12/18 08:15 Attending Physician Manju Wu DO Admitting Physician STEPHIE WOODS MD Consult Allergies and Home Medications Allergies Coded Allergies: No Known Drug Allergies (Unverified , 12/11/13) Home Medications Aspirin 325 Mg Tablet.dr, 325 MG PO DAILY PRN for PAIN-MILD, (Reported) Ipratropium/Albuterol Sulfate 3 Ml Ampul.neb, 3 ML IH BID PRN for SHORTNESS OF BREATH Prescribed by: SANA ESPINAL on 06/11/17 1103 Patient Home Medication List Home Medication List Reviewed: Yes Past Yijmewt-Mxvxll-Fpfhdp Hx Patient Social History Marrital Status: single Living Status: LIVES AT HOME ALONE, SON LIVES IN [place] Employed/Student: retired Alcohol Use: Regular Use Number of Drinks Today: AA Alcohol Beverage of Choice: Beer (30 A WEEK) Recreational Drug Use: No Smoking Status: Current Everyday Smoker Type Used: Cigarettes 2nd Hand Smoke Exposure: No Physical Abuse Screen: No Sexual Abuse: No Recent Foreign Travel: No Contact w/other who traveled: No Recent Hopitalizations: No Recent Infectious Disease Expo: No Immunizations Up To Date Tetanus Booster (TDap): Unknown Seasonal Allergies Seasonal Allergies: No Surgeries Yes (1/3 OF RIGHT LUNG REMOVED FOR CANCER - AND TEETH REMOVED FOR DENTURES) Lobectomy, Tonsillectomy Respiratory Yes (LUNG RESECTION, left upper lung mass) Currently Using CPAP: No Currently Using BIPAP: No Cardiovascular Yes ( STENTS X2) Coronary Artery Disease, Hypertension Neurological No Reproductive System Hx Reproductive Disorders: No Genitourinary No Gastrointestinal No Musculoskeletal No Endocrine History of Endocrine Disorders: No HEENT History of HEENT Disorders: Yes HEENT Disorders: Cataract Loss of Vision: Bilateral Hearing Impairment: Hard of Hearing Cancer Yes Lung Did You Recieve Any Treatments: Yes Type of Treatment: Surgical Intervention Psychosocial History of Psychiatric Problem: No Integumentary History of Skin or Integumenta: No Blood Transfusions History of Blood Disorders: No Adverse Reaction to a Blood Tr: No Reviewed Nursing Assessment Reviewed/Agree w Nursing PMH: Yes Family Medical History Significant Family History: Heart Disease, Cancer, Hypertension, Lung Disease Family Hx: Cancer (brother had lung cancer) 19 FATHER G8 BROTHER Cancer of colon 19 FATHER Family history: Allergy G8 BROTHER Hearing loss 19 FATHER Malignant neoplasm of lung G8 BROTHER Parkinson's disease 19 MOTHER Constitutional: No chills; dizziness; No fever; malaise, weakness EENTM: No blurred vision, No hoarseness, No throat swelling Respiratory: cough, dyspnea on exertion; No orthopnea; short of breath; No wheezing Cardiovascular: No chest pain, No palpitations Gastrointestinal: No abdominal pain, No constipation, No diarrhea Genitourinary: No dysuria Musculoskeletal: No muscle twitching; muscle weakness Skin: no symptoms reported Psychiatric/Neurological: Denies Anxiety, Denies Depressed, Denies Tremors; Weakness All Other Systems Reviewed Negative Unless Noted: Yes Physical Exam Vital Signs Vital Signs - First Documented 01/11/18 01/11/18 19:05 19:10 Temp 98.6 Pulse 96 Resp 20 B/P (MAP) 116/81 (93) Pulse Ox 96 O2 Delivery Nasal Cannula O2 Flow Rate 2.00 Capillary Refill : Less Than 3 Seconds Height, Weight, BMI Height: 5'10.00" Weight: 165lbs. 0.0oz. 74.407127al; 24.4 BMI Method:Stated General Appearance: No Apparent Distress, WD/WN Eyes: Bilateral Eye Normal Inspection, Bilateral Eye PERRL, Bilateral Eye EOMI HEENT: PERRL/EOMI, Pharynx Normal Neck: Full Range of Motion, Non Tender, Supple Respiratory: Chest Non Tender, Decreased Breath Sounds Cardiovascular: Regular Rate, Rhythm, No Edema, No Murmur Gastrointestinal: Normal Bowel Sounds, Non Tender, Soft Rectal: Deferred Extremity: Normal Capillary Refill, Non Tender, No Calf Tenderness, No Pedal Edema Neurologic/Psychiatric: Alert, Oriented x3, Normal Mood/Affect, electrical system specialist II-XII Norm as Tested Skin: Normal Color, Warm/Dry Assessment/Plan Assessment and Plan SEVERE HYPONATREMIA NEW LUNG MASS HX OF ADENOCARCINOMA OF LUNG GENERALIZED WEAKNESS ELEVATED LIVER ENZYMES LACTIC ACIDOSIS ALCOHOLISM SEVERE HYPONATREMIA - PT ON IV FLUIDS - NORMAL SALINE - CONTINUE WITH CURRENT MANAGEMENT - CHECK LABS IN MORNING. NEW LUNG MASS - HX OF ADENOCARCINOMA OF LUNG - CONSULT TO DR. COOL - AND DR. BULL - CONSULTS CALLED THIS MORNING - CT SCAN ORDERED. GENERALIZED WEAKNESS - WILL ORDER PHYSICAL THERAPY FOR PT TO IMPROVE STRENGTH AND OVERALL FUNCTIONING. ELEVATED LIVER ENZYMES - DUE TO ALCOHOLISM - MONITOR LABS. LACTIC ACIDOSIS - - MONITOR LABS, THIS IS LIKELY DUE TO HIS ALCOHOLISM, POOR FLUID INTAKE, MONITOR SYMPTOMS. ALCOHOLISM - CHRONIC - PROTOCOL FOR ALCOHOL WITHDRAWAL INITIATED IN ER. DVT PROPHYLAXIS AND GI PROPHYLAXIS ORDERED Admission Diagnosis SEVERE HYPONATREMIA NEW LUNG MASS HX OF ADENOCARCINOMA OF LUNG GENERALIZED WEAKNESS ELEVATED LIVER ENZYMES LACTIC ACIDOSIS ALCOHOLISM Admission Status: Inpatient Order (span 2 midnights) Reason for Inpatient Admission: SEVERE HYPONATREMIA AND RECURRENT LUNG MASS - WILL NEED FURTHER WORK UP AND GENTLE HYDRATION TO BRING HIS SODIUM SAFELY BACK UP TO NORMAL. THIS WILL REQUIRE MORE THAN TWO MIDNIGHTS TO SAFELY ACHIEVE STABILITY OF HIS SODIUM Clinical Quality Measures DVT/VTE Risk/Contraindication: Risk Factor Score Per Nursin RFS Level Per Nursing on Admit: 4+=Very High STEPHIE WOODS MD Jan 12, 2018 08:28
[2018-01-12] MEDS ORDERED: LORazepam 0.5 MG (ATIVAN) TABLET PO PRN (09:30)
[2018-01-12] MEDS ORDERED: CATHETER FLUSH 10 ML SYR IV PRN (11:15)
--- NOTE | 2018-01-12 11:38 | Physical Therapy Evaluation ---
PT Evaluation-General Medical Diagnosis Admission Date Jan 11, 2018 at 21:40 Medical Diagnosis: generalized weakness/hyponatremia Onset Date: Jan 11, 2018 Therapy Diagnosis Therapy Diagnosis: generalized weakness/debility Height/Weight Height (Feet): 5 Height (Inches): 10.00 Weight (Pounds): 165 Weight (Ounces): 0.0 Precautions Precautions/Isolations: Fall Prevention, Standard Precautions Weight Bear Status Right Lower Extremity: Right Full Weight Bearing Left Lower Extremity: Left Full Weight Bearing Referral Physician: Wes Reason for Referral: Evaluation/Treatment Medical History Pertinent Medical History: Alcoholism, CAD, COPD, HTN, Smoking Current History EMS secondary to fall and on floor for several hours/noted tremors total body Reviewed History: Yes Social History Home: Single Level Current Living Status: Alone Entry Into Home: Stairs Without Railing PT Steps Into Home: 6 Prior/Core FIM Prior Level of Function Functional Loving Measure 0=Not Assessed/NA 4=Minimal Assistance 1=Total Assistance 5=Supervision or Setup 2=Maximal Assistance 6=Modified Loving 3=Moderate Assistance 7=Complete Loving Bed Mobility: 7 Transfers (B,C,W/C) (FIM): 7 Gait: 7 PT Evaluation-Current Subjective Patient is up in room ad wesley, however, is unsafe to do so. RN notified. Pain Numeric Pain Scale: 0-No Pain Location: No Pain Reported Objective Patient Orientation: Confused Problem Solving: Poor Attachments: Oxygen, IV ROM/Strength ROM Lower Extremities bilateral LE WNL Strength Lower Extremities 4/5 grossly bilateral LE Integumentary/Posture Integumentary refer to nursing notes Bowel Incontinence: No Bladder Incontinence: No Posture kyphotic/forward flexed head Neuromuscular (Tone, Coordination, Reflexes) noted tremors bilateral LE and UE/slightly ataxic Sensory Vision: Functional Hearing: Functional Sensation Right Lower Extremit: Impaired Sensation Left Lower Extremity: Impaired Transfers Functional Loving Measure 0=Not Assessed/NA 4=Minimal Assistance 1=Total Assistance 5=Supervision or Setup 2=Maximal Assistance 6=Modified Loving 3=Moderate Assistance 7=Complete Loving Transfers (B, C, W/C) (FIM): 5 Scootin Rollin Supine to/from Sit: 5 Sit to/from Stand: 5 alarm set by PT after treatment with RN notified Gait Mode of Locomotion: Walk Anticipated Mode of Locomotion: Walk Gait (FIM): 5 Distance (FIM): 3=150 ft Distance: 500' Gait Level of Assist: 5 Gait Assistive Device: FWW Comments/Gait Description improved gait sequence with FWW use Balance Sitting Static: Normal Sitting Dynamic: Normal Standing Static: Fair Standing Dynamic: Fair Assessment/Needs 67 y.o. male, will benefit from skilled PT to address functional strength and mobility to improve current LOF. Patient is currently unaware of safety concerns and is impulsive with up ad wesley even with education given. Reinforcement required. Rehab Potential: Fair Post Rehab Potential-Barriers: compliance PT Grading Machine Operator Goals Detention Goals PT Grading Machine Operator Goals Time Frame: Jan 20, 2018 Transfers (B,C,W/C) (FIM): 6 Gait (FIM): 6 Gait distance (FIM): 3=150 ft Distance: 500' Gait Level of Assist: 6 Gait Assistive Device: FWW Stairs (FIM): 5 # of Steps: 8 Stairs Level Of Assist: 5 PT Plan Problem List Problem List: Activity Tolerance, Functional Strength, Safety, Balance, Gait, Transfer, Bed Mobility Treatment/Plan Treatment Plan: Continue Plan of Care Treatment Plan: Bed Mobility, Education, Functional Activity Loan, Functional Strength, Gait, Safety, Therapeutic Exercise, Transfers Treatment Duration: Jan 20, 2018 Frequency: 6 times per week Estimated Hrs Per Day: .25 hour per day Patient and/or Family Agrees t: Yes Safety Risks/Education Patient Education: Safety Issues Teaching Recipient: Patient Teaching Methods: Discussion Response to Teaching: Reinforcement Needed Discharge Recommendations Therapy D/C Recommendations: Penitentiary Placement, Halfway (TCU/NH) Time/GCodes Time In: 1030 Time Out: 1045 Total Billed Treatment Time: 15 Total Billed Treatment 1 visit [facility] 15 min INESSA XIE PT Jan 12, 2018 11:38
--- NOTE | 2018-01-12 12:30 | Pulmonary Consultation ---
History of Present Illness History of Present Illness Date of Consultation 01/12/18 12:24 Time Seen by Provider: 12:25 Date of Admission History of Present Illness 67yo with hx of lung cancer presented to ED secondary to severe weakness and was found to have severe hyponatremia and a enlarging lung mass per CXR. . Allergies and Home Medications Allergies Coded Allergies: No Known Drug Allergies (Unverified , 12/11/13) Home Medications Ipratropium/Albuterol Sulfate 3 Ml Ampul.neb, 3 ML IH BID PRN for SHORTNESS OF BREATH Prescribed by: SANA ESPINAL on 06/11/17 1103 Pantoprazole Sodium 40 Mg Tablet.dr, 40 MG PO DAILY@0700 Prescribed by: ANURADHA SPENCER on 01/15/18 1222 Past Xlsprsj-Rstmmp-Gcqqjz Hx Patient Social History Alcohol Use: Regular Use Number of Drinks Today: AA Alcohol Beverage of Choice: Beer Recreational Drug Use: No Smoking Status: Current Everyday Smoker Type Used: Cigarettes 2nd Hand Smoke Exposure: No Recent Foreign Travel: No Contact w/Someone Who Travel: No Recent Infectious Disease Expo: No Recent Hopitalizations: No Physical Abuse: No Sexual Abuse: No Immunizations Up To Date Tetanus Booster (TDap): Unknown Seasonal Allergies Seasonal Allergies: No Past Medical History Surgeries: Yes (1/3 OF RIGHT LUNG REMOVED FOR CANCER - AND TEETH REMOVED FOR DENTURES) Lobectomy, Tonsillectomy Respiratory: Yes (LUNG RESECTION, left upper lung mass) Pneumonia, COPD, Emphysema Currently Using CPAP: No Currently Using BIPAP: No Cardiac: Yes ( STENTS X2) Coronary Artery Disease, Hypertension Neurological: No Reproductive Disorders: No Genitourinary: No Gastrointestinal: No Musculoskeletal: No Endocrine: No HEENT: Yes Cataract Loss of Vision: Bilateral Hearing Impairment: Hard of Hearing Cancer: Yes Lung Did You Recieve Any Treatments: Yes What Type of Treatment Did You: Surgical Intervention Psychosocial: No Nursing Suicide Risk Score: 0 Integumentary: No Blood Disorders: No Adverse Reaction/Blood Tranf: No Family Medical History Cancer (brother had lung cancer) 19 FATHER G8 BROTHER Cancer of colon 19 FATHER Family history: Allergy G8 BROTHER Hearing loss 19 FATHER Malignant neoplasm of lung G8 BROTHER Parkinson's disease 19 MOTHER Heart Disease, Cancer, Hypertension, Lung Disease Review of Systems Time Seen by Provider: 12:49 Constitutional: Sweats, Weakness, Malaise; No: Fever, Chills, Other Eyes: No: Pain, Vision change, Conjunctivae inflammation, Eyelid inflammation, Other, Redness ENT: No: Ear pain, Ear discharge, Nose pain, Nose discharge, Nose congestion, Mouth pain, Mouth swelling, Throat pain, Throat swelling, Other Respiratory: Cough, Dry, Shortness of breath, Wheezing; No: Hemoptysis, Pleuritic Pain Cardiovascular: Paroxysmal Noc. Dyspnea, Lt Headedness; No: Chest Pain Gastrointestinal: No: Nausea, Vomiting, Abdominal Pain, Diarrhea, Constipation , Melena, Hematochezia, Other Neurological: Weakness, Confusion Sepsis Event Evaluation Height, Weight, BMI Height: 5'10.00" Weight: 165lbs. 0.0oz. 74.858948cz; 24.4 BMI Method:Stated Exam Exam Vital Signs Date Time Temp Pulse Resp B/P (MAP) Pulse Ox O2 Delivery O2 Flow Rate FiO2 01/12/18 10:47 97 Nasal Cannula 2.00 01/12/18 09:00 Nasal Cannula 2.00 01/12/18 08:30 97.9 116 22 137/85 (102) 95 Nasal Cannula 2.00 01/12/18 07:00 90 01/12/18 06:59 97 Nasal Cannula 2.00 01/12/18 04:20 98.8 94 20 135/89 (104) 95 Room Air 01/12/18 03:25 87 Room Air 01/12/18 02:00 97.3 92 20 142/83 (102) 92 Room Air 01/12/18 01:30 97.7 91 21 131/81 (98) 90 Room Air 01/12/18 01:00 100 01/12/18 01:00 98.1 96 20 138/81 (100) 92 Room Air 01/12/18 00:45 98.0 98 20 122/58 (79) 90 Room Air 01/12/18 00:30 98.6 100 20 135/65 (88) 94 Room Air 01/12/18 00:17 105 01/12/18 00:15 98.9 96 20 141/78 (99) 94 Room Air 01/12/18 00:00 98.1 102 21 170/90 (116) 97 Room Air 01/11/18 23:55 80 95 01/11/18 23:50 Nasal Cannula 2.00 01/11/18 22:57 Room Air 01/11/18 22:50 98.6 96 20 116/81 (93) 95 Nasal Cannula 2.00 01/11/18 20:30 98.6 96 20 116/81 95 2.00 01/11/18 19:41 95 Nasal Cannula 2.00 01/11/18 19:10 92 Nasal Cannula 2.00 01/11/18 19:05 98.6 96 20 116/81 (93) 96 I & O 01/12/18 07:00 Intake Total 1000 ml Output Total 750 ml Balance 250 ml Height & Weight Height: 5'10.00" Weight: 165lbs. 0.0oz. 74.846733je; 24.4 BMI Method:Stated General Appearance: WD/WN, Anxious HEENT: PERRL/EOMI, Normal ENT Inspection Neck: Full Range of Motion, Normal Inspection, Non Tender, Supple Respiratory: No Accessory Muscle Use, No Respiratory Distress, Crackles, Decreased Breath Sounds Cardiovascular: Regular Rate, Rhythm Capillary Refill: Less Than 3 Seconds Gastrointestinal: normal bowel sounds, non tender, soft Extremity: Normal Capillary Refill, No Pedal Edema Neurologic/Psychiatric: Alert, Oriented x3 Skin: Normal Color, Warm/Dry Lymphatic: No Adenopathy Results Lab Laboratory Tests 01/11/18 19:05 01/12/18 05:20 Assessment/Plan Assessment/Plan Enlargement of left parahilar area per CXR -Check CT of chest with contrast r/o suspicious mass Severe hyponatremia -Continue to monitor and Dr. Harvey's management Severe COPD with AE -SVNS Q4 -Solumedrol x3 doses -Continue to monitor close HX of right adenocarcinoma s/p lobectomy at -PT did not require chemo/radiation Hx of Left benign hamartoma Generalized weakness -PT/OT Metabolic lactic acidosis -IVF Dehydration -IVF Elevated LFTs -Monitor Previous radiology and labs reviewed. YOBANI COOL DO Jan 12, 2018 12:30
[2018-01-12] MEDS ORDERED: IOHEXOL 350 MG/ML 100 ML (OMNIPAQUE 350) VIAL IV ONE (12:45)
[2018-01-12] MEDS ORDERED: NS 250 ML (IVPB) BAG IV ONE (12:45)
[2018-01-12] MEDS: CATHETER FLUSH 10 ML SYR IV SCH ×2 (12:50→19:26)
[2018-01-12] MEDS ORDERED: RECEIVED CONTRAST (Hold Metformin) IV SCH (13:00)
--- NOTE | 2018-01-12 13:28 | Diagnostic Imaging Report ---
PROCEDURE: CT chest with contrast only. TECHNIQUE: Multiple contiguous axial images were obtained through the chest after administration of intravenous contrast. INDICATION: Status post right-sided adenocarcinoma with lumpectomy and benign left hamartoma. Correlation is made with the chest radiograph from one day earlier and CT chest from 12/11/2013. No axillary lymphadenopathy is seen. No mediastinal lymphadenopathy is seen. The mixed density mass adjacent to left hilum has increased slightly in size, now measuring 6.9 cm AP x 5.9 cm transverse compared with 5.9 cm AP x 4.9 cm transverse on prior. This does contain areas of fat density and calcification and has the appearance of a hamartoma. Previously noted spiculated mass in the right upper lobe is no longer visualized and has been surgically removed. There are emphysematous changes in both lungs. There is an area of slightly irregular nodularity in the right middle lobe which appears new measuring 2.2 x 1.8 cm. Small neoplasm cannot be excluded. The remainder of the lung palacios are clear. Upper abdomen does show hepatic steatosis. IMPRESSION: 1. There has been mild increase in size of the circumscribed mixed density mass adjacent to the left hilum when compared with the prior study from 12/11/2013. This again has the appearance of a hamartoma. 2. Development of irregular nodular masslike density in the right middle lobe, suspicious for a small neoplasm. PET CT would be recommended for further evaluation. Dictated by: Dictated on workstation # [id number]
[2018-01-12] MEDS: ENOXAPARIN 40 MG/0.4 ML (LOVENOX) SYR SC SCH (13:54)
--- NOTE | 2018-01-12 23:42 | CONSULTATION REPORT ---
DATE OF SERVICE: The patient is admitted to room 402. REFERRING PHYSICIAN: Lakshmi Harvey MD. PRIMARY PHYSICIAN: Manju Wu DO. IMPRESSION: 1. A 67-year-old male admitted with significant weakness and history of fall at home. 2. Significant hyponatremia, rule out paraneoplastic syndrome of inappropriate antidiuretic hormone. 3. New right middle lobe lung nodule, rule out malignancy. 4. Previous history of adenocarcinoma of the right upper lobe, status post resection at [facility] in 2013. 5. Extensive history of tobacco and alcohol use. RECOMMENDATION: 1. Continue normal saline cautiously and monitor sodium level serially. 2. Continue DVT prophylaxis and neck obtained replacement therapy. Strongly advised the patient to stop tobacco and alcohol use and offered help. 3. Increase activity level as tolerated. 4. I'll arrange for a PET CT scan as outpatient to evaluate right middle lobe lesion. 5. Follow-up with me at the cancer center few days after the PET/CT scan to discuss about further options. BRIEF HISTORY: The patient is a 67-year-old male who has had increasing weakness and a fall at home. He was unable to get himself up and called emergency medical services who brought him to the emergency room. He was found to have significant hyponatremia and a CT scan of the chest showed a new right upper lobe lung nodule. He was admitted to the hospital for further management. Oncology consultation was requested because of the new lung nodule. PAST MEDICAL HISTORY: Significant for similar presentation in mid 2013 with hyponatremia and right upper lobe lung nodule. He had a CT-guided needle biopsy of the lung nodule at that time, which was suspicious for adenocarcinoma. He was referred to [facility] and underwent a resection of the nodule. He did not have regular followups following this. He did not receive any adjuvant treatment. He gives history of hypertension, which is longstanding and a history of atrial fibrillation in 2015. He has a history of coronary artery disease and has undergone two stents placement in the past. PAST SURGICAL HISTORY: Other surgeries include tonsillectomy and adenoidectomy in childhood, complete dental extraction and a right upper lobe lobectomy. SOCIAL HISTORY: The patient is and lives by himself in [place], [place]. He has a son who lives in [place]. No other relatives close by. He has extensive history of tobacco and alcohol use. Smoking few cigarettes a day currently and up to 6 pack of beer daily. Previously, both the smoking and alcohol use was much more extensive. FAMILY HISTORY: Significant for his father diagnosed with colon cancer and a brother who was diagnosed with lung cancer. PHYSICAL EXAMINATION: GENERAL: Today showed an elderly male, thin appearing, awake and answering questions appropriately, in no acute distress. VITAL SIGNS: His temperature was 98.8, pulse rate 96, respirations 22, blood pressure 169/89, oxygen saturation was 95% on 2 liters of oxygen by nasal cannula. HEENT: Normocephalic, extraocular muscles intact, conjunctivae pink, oral mucosa moist. NECK: Supple with no JVD. No cervical, supraclavicular or axillary lymphadenopathy palpable. CHEST: Symmetrical. LUNGS: With diminished breath sounds bilaterally. No wheezes or rales heard. CARDIOVASCULAR: Regular in rate and rhythm. No murmurs or gallops heard. ABDOMEN: Soft, nontender with no hepatosplenomegaly or other masses palpable. EXTREMITIES: Showed no edema. NEUROLOGIC: Grossly intact without focal motor deficits. LABORATORY DATA: CBC done today showed white count of 3.1, hemoglobin 15.3 and platelet count of 122,000 with neutrophil count of 2.6 and lymphocyte count of 0.3. Chemistry panel done yesterday at the time of admission showed sodium level of 116. Sodium level done today was 125. BUN was 5 and creatinine 0.77 with GFR more than 60 mL per minute. Liver function studies were elevated at the time of admission with total bilirubin 1.7, AST 141 and ALT 96. Liver function studies today showed the total bilirubin was 1.1, AST [address] scan of the chest done today showed a mass adjacent to the left hilum measuring 6.9 x 5.9 cm compared with 5.9 x 4.9 cm on 12/11/2013. This contains areas of fat density and calcification and consistent with a hamartoma. Previously noted spiculated mass in the right upper lobe is no longer visualized and has been surgically removed. Emphysematous changes in both lungs. Area of irregular nodularity in the right middle lobe measuring 2.2 x 1.8 cm. This is suspicious for neoplasm. PET CT scan was recommended for further evaluation. CT scan of the head done yesterday at the emergency room showed no acute intracranial findings. Nonspecific white matter changes likely representing small vessel ischemic disease. Generalized parenchymal volume loss noted. Thank you for allowing me to participate in this patient's care. I will follow the patient with you and make appropriate recommendations. Job ID: [id number] DocumentID: [id number] Dictated Date: 01/12/2018 16:58:15 Lead Data Entry Operator Date: 01/12/2018 23:41:12 Dictated By: DYAN BULL MD MTDD
[2018-01-13] VITALS (7 sets, daily range): BP systolic 136–177; BP diastolic 70–95
[2018-01-13] MEDS: RT-ALBUTEROL/IPRATROPIUM 3 ML (DUONEB) VIAL INH SCH ×6 (02:21→22:24)
[2018-01-13] MEDS: D5 NS W/KCL 20 MEQ/L 1,000 ML IV SCH ×3 (04:19→17:46)
[2018-01-13] MEDS: CATHETER FLUSH 10 ML SYR IV SCH ×3 (06:17→22:00)
--- NOTE | 2018-01-13 08:14 | Progress Note ---
Subjective Date Seen by Provider: Jan 13, 2018 Time Seen by Provider: 08:10 Subjective/Events-last exam PT REPORTS THAT HE IS FEELING BETTER - HE HAS LESS SHORTNESS OF BREATH. HE HAS IMPROVED STRENGTH. HE HAS COUGH, AND SHORTNESS OF BREATH. Review of Systems General: No Chills; Fatigue HEENT: No Head Aches Pulmonary: Dyspnea, Cough Cardiovascular: No: Chest Pain, Palpitations Gastrointestinal: No: Nausea, Abdominal Pain Neurological: Weakness; No: Confusion Focused Exam Lactate Level 01/11/18 19:30: Lactic Acid Level 3.31*H 01/11/18 21:35: Lactic Acid Level 4.15*H Objective Exam Last Set of Vital Signs Vital Signs Date Time Temp Pulse Resp B/P (MAP) Pulse Ox O2 Delivery O2 Flow Rate FiO2 01/13/18 07:52 98.7 90 20 154/82 (106) 97 Nasal Cannula 2.00 Capillary Refill : Less Than 3 Seconds I&O Intake and Output 01/13/18 00:00 Intake Total 3135.2 ml Output Total 4735 ml Balance -1599.8 ml Intake Oral 2120 ml IV Total 1015.2 ml Output Urine Total 4735 ml General: Alert, Oriented X3, Cooperative HEENT: Atraumatic, PERRLA Neck: Supple Lungs: Clear to Auscultation Heart: Regular Rate Abdomen: Normal Bowel Sounds, Soft Extremities: No Clubbing Psych/Mental Status: Mental Status NL, Mood NL Results Lab Microbiology 01/11/18 Blood Culture - Preliminary, Resulted Gram Positive Ted Assessment/Plan Assessment/Plan Assess & Plan/Chief Complaint SEVERE HYPONATREMIA NEW LUNG MASS HX OF ADENOCARCINOMA OF LUNG GENERALIZED WEAKNESS ELEVATED LIVER ENZYMES LACTIC ACIDOSIS ALCOHOLISM SEVERE HYPONATREMIA - PT ON IV FLUIDS - NORMAL SALINE - CONTINUE WITH CURRENT MANAGEMENT - CHECK LABS IN MORNING. NEW LUNG MASS - HX OF ADENOCARCINOMA OF LUNG - CONSULT TO DR. COOL - AND DR. BULL - DEFER FURTHER INVESTIGATION TO DR. COOL'S RECOMMENDATIONS. CT CHEST - IMPRESSION: 1. There has been mild increase in size of the circumscribed mixed density mass adjacent to the left hilum when compared with the prior study from 12/11/2013. This again has the appearance of a hamartoma. 2. Development of irregular nodular masslike density in the right middle lobe, suspicious for a small neoplasm. PET CT would be recommended for further evaluation. GENERALIZED WEAKNESS - WILL ORDER PHYSICAL THERAPY FOR PT TO IMPROVE STRENGTH AND OVERALL FUNCTIONING. ELEVATED LIVER ENZYMES - DUE TO ALCOHOLISM - MONITOR LABS. - NO SYMPTOMS OF WITHDRAWAL LACTIC ACIDOSIS - - MONITOR LABS, THIS IS LIKELY DUE TO HIS ALCOHOLISM, POOR FLUID INTAKE, MONITOR SYMPTOMS. ALCOHOLISM - CHRONIC - PROTOCOL FOR ALCOHOL WITHDRAWAL INITIATED IN ER. DISCUSSED WITH PT'S SON ON THE PHONE TODAY - HE REPORTS THAT THE PATIENT HAS BEEN A HEAVY ALCOHOLIC FOR YEARS, HOWEVER HE HAS BEEN SLOWING DOWN ON HIS DRINKING LATELY - HE IS DOWN TO 30 BEERS A WEEK. HE REPORTS THAT HIS DAD JUST DRINKS AND DOES NOT EAT MUCH FOOD, AND THIS CYCLE OF HIS DAD HAVING LOW SODIUM DUE TO HIS HEAVY ALCOHOL INTAKE HAS BEEN GOING ON FOR YEARS. HE REPORTS THAT AFTER HIS DAD HAD HIS DX OF LUNG CANCER AND HAD HIS LUNG RESECTION, HE "GOT MAD" AND DECIDED HE WOULD NOT GO THROUGH ANY FURTHER TREATMENTS AND HIS SON IS NOT SURE IF HIS DAD WILL AGREE TO FURTHER TREATMENT. I WILL SIGN OFF ON PT FOR DR. LOPEZ TO TAKE OVER CARE TOMORROW. Clinical Quality Measures Admission Status Admission Dx SEVERE HYPONATREMIA NEW LUNG MASS GENERALIZED WEAKNESS ELEVATED LIVER ENZYMES LACTIC ACIDOSIS DVT/VTE Risk/Contraindication: Risk Factor Score Per Nursin RFS Level Per Nursing on Admit: 4+=Very High STEPHIE WOODS MD Jan 13, 2018 08:14
[2018-01-13 09:12] LABS: HEMOGLOBIN 13.8 G/DL (13.3-17.7); MEAN PLATELET VOLUME 11.2 FL (7.4-10.4); RED BLOOD COUNT 4.26 10^6/uL (4.35-5.85); RED CELL DISTRIBUTION WIDTH 13.7 % (10.0-14.5); WHITE BLOOD COUNT 14.1 10^3/uL (4.3-11.0)
[2018-01-13 09:41] LABS: ALANINE AMINOTRANSFERASE 69 U/L (0-55); ALKALINE PHOSPHATASE 81 U/L (40-136); BILIRUBIN,TOTAL 1.1 MG/DL (0.1-1.0); BUN/CREATININE RATIO 7; CALCIUM 9.3 MG/DL (8.5-10.1); CARBON DIOXIDE 26 MMOL/L (21-32); CHLORIDE 97 MMOL/L (98-107); CREATININE SERUM 0.67 MG/DL (0.60-1.30); GFR ESTIMATED > 60; GLUCOSE 157 MG/DL (70-105); POTASSIUM 3.1 MMOL/L (3.6-5.0); SODIUM 135 MMOL/L (135-145); TOTAL PROTEIN 6.7 GM/DL (6.4-8.2)
--- NOTE | 2018-01-13 09:48 | Physical Therapy Daily Note ---
PT Daily Note-Current Subjective Pt laying Supine in bed upon arrival. Pt agrees to PT and has just finished breakfast. Pain Location: No Pain Reported Mental Status Patient Orientation: Person, Place, Time, Situation Attachments: Oxygen (2L), IV Transfers Functional [place] Measure 0=Not Assessed/NA 4=Minimal Assistance 1=Total Assistance 5=Supervision or Setup 2=Maximal Assistance 6=Modified [place] 3=Moderate Assistance 7=Complete IndependenceIRFPAI Quality Coding Scale 6 Independent with activity with or without an assistive device 5 Patient requires set up or clean up by helper. Patient completes activity by themselves 4 Supervision or touching assist (CGA). [place] provide cues , steadying assist 3 The helper provides less than half the effort to complete the activity 2 The helper provides more than half the effort to complete the activity 1 Dependent. The helper does all the effort to complete an activity 7 Patient refused to complete or attempt activity 9 The patient did not perform the activity before the current illness or injury 88 Not attempted due to Medical conditions or safety concerns Scootin Rollin Supine to/from Sit: 5 Sit to/from Stand: 5 Weight Bearing Right Lower Extremity: Right Full Weight Bearing Left Lower Extremity: Left Full Weight Bearing Gait Training Distance (FIM): 3=150 ft Distance: 350' Gait Level of Assist: 5 Gait Persons Needed: 1 Gait Assistive Device: FWW ASSOCIATE STORE MANAGER assisted with management of IV pole & O2 bottle. Treatments Pt advises medical history to ASSOCIATE STORE MANAGER then transfers to EOB, then Standing using FWW at SBA. Pt ambulates in hallway using FWW at SBA. Pt returns to room to rest at end of walk. Dr Harvey arrives at end of tx. Pt has all needs met at end of tx. Assessment Current Status: Good Progress Pt reports feeling "pretty good" and completes transfers and ambulation at SBA. Pt has gotten stronger during Acute stay. PT [facility] Goals Theatre Professor Goals PT [facility] Goals Time Frame: Jan 20, 2018 Transfers (B,C,W/C) (FIM): 6 Gait (FIM): 6 Gait distance (FIM): 3=150 ft Distance: 500' Gait Level of Assist: 6 Gait Assistive Device: FWW Stairs (FIM): 5 # of Steps: 8 Stairs Level Of Assist: 5 PT Plan Problem List Problem List: Activity Tolerance, Transfer Treatment/Plan Treatment Plan: Continue Plan of Care Treatment Plan: Bed Mobility, Education, Functional Activity Loan, Functional Strength, Gait, Safety, Therapeutic Exercise, Transfers Treatment Duration: Jan 20, 2018 Frequency: 6 times per week Estimated Hrs Per Day: .25 hour per day Patient and/or Family Agrees t: Yes Safety Risks/Education Patient Education: Gait Training, Transfer Techniques, Correct Positioning, Safety Issues Teaching Recipient: Patient Teaching Methods: Discussion Response to Teaching: Verbalize Understanding Time/GCodes Time In: 900 Time Out: 913 Total Billed Treatment Time: 13 Total Billed Treatment 1, GT (13m) G Codes Necessary: IRAIDA Nielsen ASSOCIATE STORE MANAGER Jan 13, 2018 09:48
[2018-01-13] MEDS: cefTRIAXone INJECTION 1,000 MG in NS (IVPB) 50 ML IV SCH (10:31)
[2018-01-13] MEDS: PANTOPRAZOLE 40 MG/10 ML (PROTONIX) VIAL IV SCH (10:31)
[2018-01-13] MEDS: LACTOBACILLUS Acidoph/Bulgar (LACTINEX/FLORANEX) TAB PO SCH ×2 (10:33→18:18)
[2018-01-13] MEDS: ENOXAPARIN 40 MG/0.4 ML (LOVENOX) SYR SC SCH (13:55)
--- NOTE | 2018-01-13 16:15 | Pulmonary Progress Note ---
Subjective Time Seen by Provider: 08:21 Subjective/Events-last exam No complications noted. Sepsis Event Evaluation Height, Weight, BMI Height: 5'10.00" Weight: 165lbs. 0.0oz. 74.279636ig; 24.4 BMI Method:Stated Focused Exam Lactate Level 01/11/18 19:30: Lactic Acid Level 3.31*H 01/11/18 21:35: Lactic Acid Level 4.15*H Exam Exam Vital Signs Date Time Temp Pulse Resp B/P (MAP) Pulse Ox O2 Delivery O2 Flow Rate FiO2 01/13/18 15:41 96 Nasal Cannula 2.00 01/13/18 13:00 83 01/13/18 12:00 99.4 88 20 163/82 (109) 97 Nasal Cannula 2.00 01/13/18 10:30 97 Nasal Cannula 2.00 01/13/18 10:30 Nasal Cannula 1.00 01/13/18 07:52 98.7 90 20 154/82 (106) 97 Nasal Cannula 2.00 01/13/18 07:00 75 01/13/18 06:50 95 Nasal Cannula 2.00 01/13/18 04:00 97.5 92 24 177/95 (122) 97 Nasal Cannula 2.00 01/13/18 02:22 99 Nasal Cannula 2.00 01/13/18 01:00 73 01/13/18 00:00 99.1 84 20 139/71 (93) 96 Nasal Cannula 2.00 01/12/18 22:25 95 Nasal Cannula 2.00 01/12/18 20:00 Nasal Cannula 2.00 01/12/18 19:20 99.1 98 20 131/68 (89) 95 Nasal Cannula 2.00 01/12/18 19:05 102 01/12/18 18:19 95 Nasal Cannula 2.00 I & O 01/13/18 07:00 Intake Total 3695.2 ml Output Total 4885 ml Balance -1189.8 ml Height & Weight Height: 5'10.00" Weight: 165lbs. 0.0oz. 74.607929px; 24.4 BMI Method:Stated General Appearance: WD/WN, Anxious HEENT: PERRL/EOMI, Normal ENT Inspection Neck: Full Range of Motion, Normal Inspection, Non Tender, Supple Respiratory: No Accessory Muscle Use, No Respiratory Distress, Crackles, Decreased Breath Sounds Cardiovascular: Regular Rate, Rhythm Capillary Refill: Less Than 3 Seconds Gastrointestinal: normal bowel sounds, non tender, soft Extremity: Normal Capillary Refill, No Pedal Edema Neurologic/Psychiatric: Alert, Oriented x3 Skin: Normal Color, Warm/Dry Lymphatic: No Adenopathy Results Lab Laboratory Tests 01/11/18 19:05 01/12/18 05:20 01/13/18 08:40 Assessment/Plan Assessment/Plan Enlargement of left parahilar area per CXR -Check CT of chest shows suspicious right lung mass -Will plan for out patient PET scan -I was able to get patient scheduled for bronch tomorrow morning. I did explain in detail to patient procedure. Severe hyponatremia -Continue to monitor and Dr. Harvey's management Severe COPD with AE -SVNS Q4 -Solumedrol x3 doses -Continue to monitor close HX of right adenocarcinoma s/p lobectomy at [facility] -PT did not require chemo/radiation Hx of Left benign hamartoma Generalized weakness -PT/OT Metabolic lactic acidosis -IVF Dehydration -IVF Elevated LFTs -Monitor YOBANI COOL DO Jan 13, 2018 16:15
[2018-01-13] MEDS ORDERED: KCL 10 MEQ TAB (MICRO K) PO NR (16:30)
[2018-01-14] VITALS (7 sets, daily range): BP systolic 139–188; BP diastolic 70–94
[2018-01-14] MEDS: D5 NS W/KCL 20 MEQ/L 1,000 ML IV SCH ×2 (00:32→09:45)
[2018-01-14] MEDS: RT-ALBUTEROL/IPRATROPIUM 3 ML (DUONEB) VIAL INH SCH ×6 (02:46→21:32)
[2018-01-14] MEDS: PANTOPRAZOLE 40 MG (PROTONIX) TAB PO SCH (06:00)
[2018-01-14] MEDS: LACTOBACILLUS Acidoph/Bulgar (LACTINEX/FLORANEX) TAB PO SCH ×3 (06:00→16:36)
[2018-01-14] MEDS: CATHETER FLUSH 10 ML SYR IV SCH ×3 (06:00→21:05)
[2018-01-14 06:13] LABS: HEMOGLOBIN 12.5 G/DL (13.3-17.7); MEAN PLATELET VOLUME 10.5 FL (7.4-10.4); RED BLOOD COUNT 4.05 10^6/uL (4.35-5.85); RED CELL DISTRIBUTION WIDTH 14.5 % (10.0-14.5); WHITE BLOOD COUNT 9.5 10^3/uL (4.3-11.0)
[2018-01-14 06:36] LABS: ALANINE AMINOTRANSFERASE 55 U/L (0-55); ALBUMIN 3.7 GM/DL (3.2-4.5); ALKALINE PHOSPHATASE 78 U/L (40-136); BUN/CREATININE RATIO 5; CALCIUM 8.4 MG/DL (8.5-10.1); CARBON DIOXIDE 29 MMOL/L (21-32); CHLORIDE 97 MMOL/L (98-107); CREATININE SERUM 0.75 MG/DL (0.60-1.30); GFR ESTIMATED > 60; GLUCOSE 125 MG/DL (70-105); POTASSIUM 4.5 MMOL/L (3.6-5.0); SODIUM 133 MMOL/L (135-145); TOTAL PROTEIN 5.7 GM/DL (6.4-8.2)
--- NOTE | 2018-01-14 08:08 | Pulmonary Progress Note ---
Subjective Time Seen by Provider: 08:19 Subjective/Events-last exam PT agreed to bronch yesterday after I extensively explained it to him however he is now refusing. Sepsis Event Evaluation Height, Weight, BMI Height: 5'.00" Weight: 165lbs. 0.0oz. 74.835387ae; 24.4 BMI Method:Stated Focused Exam Lactate Level 01/11/18 19:30: Lactic Acid Level 3.31*H 01/11/18 21:35: Lactic Acid Level 4.15*H Exam Exam Vital Signs Date Time Temp Pulse Resp B/P (MAP) Pulse Ox O2 Delivery O2 Flow Rate FiO2 01/14/18 06:31 98 Nasal Cannula 2.00 01/14/18 03:58 99.5 108 20 148/70 (96) 95 Nasal Cannula 2.00 01/14/18 02:47 96 Nasal Cannula 2.00 01/14/18 01:00 101 01/13/18 23:38 99.9 110 20 139/70 (93) 97 Nasal Cannula 2.00 01/13/18 22:24 96 Nasal Cannula 2.00 01/13/18 20:02 97.2 106 20 136/71 (92) 98 Nasal Cannula 2.00 01/13/18 20:00 Nasal Cannula 2.00 01/13/18 18:57 119 01/13/18 18:32 97 Nasal Cannula 2.00 01/13/18 16:15 98.5 99 20 144/70 (94) 97 Nasal Cannula 2.00 01/13/18 15:41 96 Nasal Cannula 2.00 01/13/18 13:00 83 01/13/18 12:00 99.4 88 20 163/82 (109) 97 Nasal Cannula 2.00 01/13/18 10:30 97 Nasal Cannula 2.00 01/13/18 10:30 Nasal Cannula 1.00 I & O 01/14/18 07:00 Intake Total 4750 ml Output Total 3915 ml Balance 835 ml Height & Weight Height: 5'10.00" Weight: 165lbs. 0.0oz. 74.898598pq; 24.4 BMI Method:Stated General Appearance: No Apparent Distress, WD/WN HEENT: PERRL/EOMI, Pharynx Normal Neck: Full Range of Motion, Non Tender, Supple Respiratory: Chest Non Tender, Decreased Breath Sounds Cardiovascular: Regular Rate, Rhythm, No Edema, No Murmur Capillary Refill: Less Than 3 Seconds Gastrointestinal: normal bowel sounds, non tender, soft Extremity: Normal Capillary Refill, Non Tender, No Calf Tenderness, No Pedal Edema Neurologic/Psychiatric: Alert, Oriented x3, Normal Mood/Affect, travel registered nurse pacu II-XII Norm as Tested Skin: Normal Color, Warm/Dry Lymphatic: No Adenopathy Results Lab Laboratory Tests 01/13/18 08:40 01/14/18 05:30 Assessment/Plan Assessment/Plan Enlargement of left parahilar area per CXR -Check CT of chest shows suspicious right lung mass -Will plan for out patient PET scan as out patient -I had pt set up for bronchoscopy this morning however pt refused procedure. He is concerned the bronchoscopy will spread cancer. I explained to him this does not happen however he still wants to hold off on bronchoscopy. Bacteremia with gram +Ted with 1 blood culture -Leukocytosis is improving -Repeat Blood cultures -PT has been on Rocephin Severe hyponatremia -Continue to monitor and Dr. Harvey's management Severe COPD with AE -SVNS Q4 -Continue to monitor close HX of right adenocarcinoma s/p lobectomy at -PT did not require chemo/radiation Hx of Left benign hamartoma Generalized weakness -PT/OT Metabolic lactic acidosis -IVF Dehydration -IVF Elevated LFTs -Monitor PT is ok for discharge from pulmonary standpoint. I will have him f/u as out patient to rediscuss bronchoscopy after PET scan. 30min spent with patient, and medical staff including RT. I also called and discussed with Dr. Harvey. YOBANI COOL DO Jan 14, 2018 08:08
[2018-01-14] MEDS: cefTRIAXone INJECTION 1,000 MG in NS (IVPB) 50 ML IV SCH (08:46)
--- NOTE | 2018-01-14 09:35 | Physical Therapy Daily Note ---
PT Daily Note-Current Subjective Patient reports he is feeling much better. Pain Numeric Pain Scale: 0-No Pain Location: No Pain Reported Mental Status Patient Orientation: Normal For Age Attachments: IV Transfers Functional [place] Measure 0=Not Assessed/NA 4=Minimal Assistance 1=Total Assistance 5=Supervision or Setup 2=Maximal Assistance 6=Modified [place] 3=Moderate Assistance 7=Complete IndependenceIRFPAI Quality Coding Scale 6 Independent with activity with or without an assistive device 5 Patient requires set up or clean up by helper. Patient completes activity by themselves 4 Supervision or touching assist (CGA). [place] provide cues , steadying assist 3 The helper provides less than half the effort to complete the activity 2 The helper provides more than half the effort to complete the activity 1 Dependent. The helper does all the effort to complete an activity 7 Patient refused to complete or attempt activity 9 The patient did not perform the activity before the current illness or injury 88 Not attempted due to Medical conditions or safety concerns Transfers (B, C, W/C) (FIM): 7 Scootin Rollin Supine to/from Sit: 7 Sit to/from Stand: 7 Weight Bearing Right Lower Extremity: Right Full Weight Bearing Left Lower Extremity: Left Full Weight Bearing Gait Training Gait (FIM): 7 Distance (FIM): 3=150 ft Distance: 500' Gait Level of Assist: 7 Gait Assistive Device: None safe and functional with no deviation Assessment Patient is currently at independent LOF with all gross motor skills safely and does not require skilled therapy intervention. PT instructed patient to ambulate PRN in hallway. RN notified. PT to dismiss patient from services at this time. PT Integrated Program Teacher Goals Senior Living Goals PT Senior Living Goals Time Frame: Jan 20, 2018 Transfers (B,C,W/C) (FIM): 6 Gait (FIM): 6 Gait distance (FIM): 3=150 ft Distance: 500' Gait Level of Assist: 6 Gait Assistive Device: FWW Stairs (FIM): 5 # of Steps: 8 Stairs Level Of Assist: 5 PT Plan Treatment/Plan Treatment Plan: Discontinue PT Treatment Plan: Bed Mobility, Education, Functional Activity Loan, Functional Strength, Gait, Safety, Therapeutic Exercise, Transfers Treatment Duration: Jan 20, 2018 Frequency: 6 times per week Estimated Hrs Per Day: .25 hour per day Patient and/or Family Agrees t: Yes Time/GCodes Time In: 916 Time Out: 925 Total Billed Treatment Time: 9 Total Billed Treatment 1 visit FA 9 min INESSA XIE PT Jan 14, 2018 09:35
--- NOTE | 2018-01-14 12:03 | Progress Note-Hospitalist ---
Subjective HPI/CC On Admission Date Seen by Provider: Jan 14, 2018 Time Seen by Provider: 11:59 Subjective/Events-last exam Case transferred to hospitalist service as patient had been terminated from Dr Wu's service over a year ago. Patient reports doing well. He is still declining to have bronchoscopy done to as he would like his PET scan done. Focused Exam Lactate Level 01/11/18 19:30: Lactic Acid Level 3.31*H 01/11/18 21:35: Lactic Acid Level 4.15*H 01/14/18 11:12: Lactic Acid Level 1.56 Lactic Acid Level Laboratory Tests Test 01/14/18 11:12 Lactic Acid Level 1.56 MMOL/L (0.50-2.00) Objective Exam Vital Signs Vital Signs Date Time Temp Pulse Resp B/P (MAP) Pulse Ox O2 Delivery O2 Flow Rate FiO2 01/14/18 10:31 98 Nasal Cannula 2.00 01/14/18 08:19 100.0 102 24 162/89 (113) Capillary Refill : Less Than 3 SecondsLess Than 3 Seconds General Appearance: No Apparent Distress, WD/WN Respiratory: Lungs Clear, No Respiratory Distress Cardiovascular: Regular Rate, Rhythm, No Murmur Extremity: No Calf Tenderness, No Pedal Edema Neurologic/Psychiatric: Alert, Oriented x3 Results/Procedures Lab Laboratory Tests 01/14/18 05:30 Patient resulted labs reviewed. Assessment/Plan Assessment and Plan Assess & Plan/Chief Complaint Lung Mass Plan was for Bronch today but he declined He states he will obtain it after his PET scan oncology consulted, appreciate recs Hyponatremia Improving and likely due to drinker's [place] Positive blood culture Likely a contaminant due to growth after 48 hours of incubation Continue on Rocephin Afebrile but curve trending up so trend COPD Continue SVNS Home oxygen study Noncompliance Has history of not following up He states he will follow up for visits this time and will make appropriate appointments Clinical Quality Measures DVT/VTE Risk/Contraindication: Risk Factor Score Per Nursin RFS Level Per Nursing on Admit: 4+=Very High ANURADHA SPENCER MD Jan 14, 2018 12:03
[2018-01-14] MEDS: ENOXAPARIN 40 MG/0.4 ML (LOVENOX) SYR SC SCH (13:42)
[2018-01-15] MEDS: RT-ALBUTEROL/IPRATROPIUM 3 ML (DUONEB) VIAL INH SCH ×3 (02:22→09:25)
[2018-01-15 03:50] VITALS: BP 150/88
[2018-01-15 05:57] LABS: HEMOGLOBIN 12.7 G/DL (13.3-17.7); MEAN PLATELET VOLUME 10.7 FL (7.4-10.4); RED BLOOD COUNT 3.99 10^6/uL (4.35-5.85); RED CELL DISTRIBUTION WIDTH 14.1 % (10.0-14.5); WHITE BLOOD COUNT 10.3 10^3/uL (4.3-11.0)
[2018-01-15] MEDS: LACTOBACILLUS Acidoph/Bulgar (LACTINEX/FLORANEX) TAB PO SCH ×2 (06:13→11:20)
[2018-01-15] MEDS: CATHETER FLUSH 10 ML SYR IV SCH ×2 (06:13→14:06)
[2018-01-15] MEDS: PANTOPRAZOLE 40 MG (PROTONIX) TAB PO SCH (06:13)
[2018-01-15 06:18] LABS: ALANINE AMINOTRANSFERASE 59 U/L (0-55); ALBUMIN 3.5 GM/DL (3.2-4.5); ALKALINE PHOSPHATASE 56 U/L (40-136); BUN/CREATININE RATIO 11; CALCIUM 8.9 MG/DL (8.5-10.1); CARBON DIOXIDE 29 MMOL/L (21-32); CHLORIDE 96 MMOL/L (98-107); CREATININE SERUM 0.74 MG/DL (0.60-1.30); GFR ESTIMATED > 60; GLUCOSE 96 MG/DL (70-105); POTASSIUM 4.4 MMOL/L (3.6-5.0); SODIUM 132 MMOL/L (135-145); TOTAL PROTEIN 6.1 GM/DL (6.4-8.2)
--- NOTE | 2018-01-15 07:28 | Pulmonary Progress Note ---
Subjective Time Seen by Provider: 10:58 Subjective/Events-last exam No complications noted. Sepsis Event Evaluation Height, Weight, BMI Height: 5'.00" Weight: 170lbs. 12.8oz. 77.452499pl; 24.4 BMI Method:Stated Focused Exam Lactate Level 01/14/18 11:12: Lactic Acid Level 1.56 Exam Exam Vital Signs Date Time Temp Pulse Resp B/P (MAP) Pulse Ox O2 Delivery O2 Flow Rate FiO2 01/15/18 03:50 98.4 81 20 150/88 (108) 91 Room Air 01/15/18 02:23 Room Air 01/15/18 01:00 78 01/14/18 23:55 98.6 95 20 163/94 (117) 94 Room Air 01/14/18 22:29 99.5 01/14/18 20:56 100.0 92 20 160/86 (110) 92 Room Air 01/14/18 20:00 Nasal Cannula 2.00 01/14/18 19:00 81 01/14/18 18:31 95 Room Air 01/14/18 16:36 99.6 86 20 139/78 (98) 97 Room Air 01/14/18 15:57 95 2.00 01/14/18 13:00 109 01/14/18 12:00 99.3 90 24 188/85 (119) 100 Nasal Cannula 2.00 01/14/18 10:31 98 Nasal Cannula 2.00 01/14/18 08:19 100.0 102 24 162/89 (113) 99 Nasal Cannula 2.00 01/14/18 08:00 Nasal Cannula 2.00 I & O 01/15/18 07:00 Intake Total 1040 ml Output Total 2425 ml Balance -1385 ml Height & Weight Height: 5'.00" Weight: 170lbs. 12.8oz. 77.288446qy; 24.4 BMI Method:Stated General Appearance: No Apparent Distress, WD/WN HEENT: PERRL/EOMI, Pharynx Normal Neck: Full Range of Motion, Non Tender, Supple Respiratory: Lungs Clear, No Respiratory Distress Cardiovascular: Regular Rate, Rhythm, No Murmur Capillary Refill: Less Than 3 Seconds Gastrointestinal: normal bowel sounds, non tender, soft Extremity: No Calf Tenderness, No Pedal Edema Neurologic/Psychiatric: Alert, Oriented x3 Skin: Normal Color, Warm/Dry Lymphatic: No Adenopathy Results Lab Laboratory Tests 01/13/18 08:40 01/14/18 05:30 01/15/18 05:10 Assessment/Plan Assessment/Plan Enlargement of left parahilar area per CXR -Check CT of chest shows suspicious right lung mass -Will plan for out patient PET scan as out patient -I had pt set up for bronchoscopy this morning however pt refused procedure. He is concerned the bronchoscopy will spread cancer. I explained to him this does not happen however he still wants to hold off on bronchoscopy. Bacteremia with gram +Ted with 1 blood culture -Leukocytosis is improving -Repeat Blood cultures pending -PT has been on Rocephin Severe COPD with AE -SVNS Q4 -Continue to monitor close HX of right adenocarcinoma s/p lobectomy at -PT did not require chemo/radiation Hx of Left benign hamartoma Generalized weakness -PT/OT Metabolic lactic acidosis -IVF Dehydration -IVF Elevated LFTs -Monitor I will have him f/u as out patient to rediscuss bronchoscopy after PET scan. YOBANI COOL DO Jan 15, 2018 07:28
[2018-01-15 08:00] VITALS: BP 135/82
[2018-01-15] MEDS: cefTRIAXone INJECTION 1,000 MG in NS (IVPB) 50 ML IV SCH (08:11)
[2018-01-15 12:00] VITALS: BP 168/96
--- NOTE | 2018-01-15 12:19 | Discharge Inst-Simple/Standard ---
Discharge Inst-Standard Discharge Medications New, Converted or Re-Newed RX: Transmitted to Pharmacy Patient Instructions/Follow Up Plan of Care/Instructions/FU: Please continue to take your medications as written and follow up with your physicians as scheduled. Activity as Tolerated: Yes Discharge Diet: Cardiac Diet Return to The Hospital For: SOB, fever, chest pain, coughing up blood, if you feel you are getting worse. ANURADHA SPENCER MD Jan 15, 2018 12:19 pm
[2018-01-15] MEDS ORDERED: PANT40TA3 PO (12:22)
[2018-01-15] MEDS: ENOXAPARIN 40 MG/0.4 ML (LOVENOX) SYR SC SCH (12:36)
--- NOTE | 2018-01-15 12:51 | Consultation-Cardiology ---
HPI-Cardiology Cardiology Consultation: Date of Consultation 01/15/18 Date of Admission Attending Physician Manju Wu DO Admitting Physician Manju Wu DO Consulting Physician Sidra JAIN MD HPI: Time Seen by Provider: 15:00 Chief Complaint: Weakness This is a 67-year-old gentleman who has history of CAD, status post PCI 2, active smoking, COPD, presents with complains of weakness. The patient denies shortness of breath or chest pain. He was found to have hyponatremia and hypo- kalemia. A lung mass was also found. Review of Systems-Cardiology Review of Systems Constitutional: As described under HPI; No As described under HPI, No no symptoms reported, No chills, No fever, No lightheadedness; malaise, tiredness Eyes: No As described under HPI, No no symptoms reported, No blindness, No blurred vision, No contact lenses, No drainage, No decreased acuity, No foreign body sensation, No pain, No vision change Ears/Nose/Throat: No As described under HPI, No no symptoms reported, No chronic hearing loss, No ear discharge, No ear pain, No nasal drainage, No ulcerations Respiratory: No no symptoms reported; As described under HPI; No As described under HPI, No cough, No orthopnea, No shortness of breath, No SOB with excertion Cardiovascular: No no symptoms reported; As described under HPI; No As described under HPI, No chest pain, No edema, No irregular heart rate, No lightheadedness, No palpitations Gastrointestinal: No no symptoms reported, No As described under HPI, No abdomen distended, No abdominal pain, No blood streaked bowels, No constipation , No diarrhea, No nausea, No vomiting, No stool coloration changes Genitourinary: No As described under HPI, No burning, No dysuria, No discharge , No frequency, No flank pain, No hematuria, No urgency Musculoskeletal: No no symptoms reported, No As describe under HPI, No back pain, No gout, No joint pain, No joint swelling, No muscle pain, No muscle stiffness, No neck pain, No other Skin: No no symptoms reported, No As described under HPI, No change in color, No change in hair/nails, No dryness, No lesions, No lumps, No rash, No other, No skin related problems, No ulcerations, No rash on exposed areas, No ulcerations on exposed areas Psychiatric/Neurological: No anxiety, No depression, No seizure, No focal weakness, No syncope Hematologic: No bleeding abnormalities All Other Systems Reviewed Negative Unless Noted: Yes [id number] Hx Patient Social History Marrital Status: single Living Status: LIVES AT HOME ALONE, SON LIVES IN [place] Employed/Student: retired Alcohol Use: Regular Use Recreational Drug Use: No Smoking Status: Current Everyday Smoker Type Used: Cigarettes 2nd Hand Smoke Exposure: No Recent Foreign Travel: No Recent Infectious Disease Expo: No Hospitalization with Isolation: Denies Physical Abuse Screen: No Sexual Abuse: No Immunizations Up To Date Tetanus Booster (TDap): Unknown Past Medical History PMH As described under Assessment. Family Medical History Family History: Cancer (brother had lung cancer) 19 FATHER G8 BROTHER Cancer of colon 19 FATHER Family history: Allergy G8 BROTHER Hearing loss 19 FATHER Malignant neoplasm of lung G8 BROTHER Parkinson's disease 19 MOTHER Allergies and Home Medications Allergies Coded Allergies: No Known Drug Allergies (Unverified , 12/11/13) Home Medications Ipratropium/Albuterol Sulfate 3 Ml Ampul.neb, 3 ML IH BID PRN for SHORTNESS OF BREATH Prescribed by: SANA ESPINAL on 06/11/17 1103 Pantoprazole Sodium 40 Mg Tablet.dr, 40 MG PO DAILY@0700 Prescribed by: ANURADHA SPENCER on 01/15/18 1222 Patient Home Medication List Home Medication List Reviewed: Yes Physical Exam-Cardiology Physical Exam Vital Signs/I&O 01/16/18 00:00 Intake Total 1720 ml Output Total 1100 ml Balance 620 ml Capillary Refill : Less Than 3 SecondsLess Than 3 Seconds Constitutional: appears stated age, AAO x 3; No apparent distress; well- developed, well-nourished HEENT: PERRL; No normal ENT inspection, No TMs normal, No pharynx normal, No scleral icterus (R), No scleral icterus (L), No pale conjunctivae (R), No pale conjunctivae (L), No photophobia, No TM abnormal (R), No TM abnormal (L), No pharyngeal erythema, No tonsillar exudate, No other, No discharge, No EOMI; hearing is well preserved; No hard of hearing; oral hygience is good; No ulceration, No xanthelasmas are seen Neck: No non-tender, No full range of motion, No supple, No normal inspection, No carotid bruit, No limited range of motion, No lymphadenopathy (R), No lymphadenopathy (L), No tender lateral, No tender midline, No thyromegaly, No other; carotid pulses are 2 + bilaterally; No with good upstrokes Respiratory: No accessory muscle use, No respiratory distress, No chest tender , No chest expansion is symmetric; chest is bilaterally symmetric; No lungs clear to percussion; lungs clear to auscultation; No crackles, No rhonchi, No rales, No stridor, No wheezing, No pleural rub, No other Cardiovascular: regular rate-rhythm; No irregularly irregular, No extra beats, No parasternal heave is noted, No JVD, No edema, No bradycardia, No tachycardia , No point of maximal impulse, No cardiac thrills are palpable; S1 and S2; No gallop/S3, No gallop/S4, No diastolic murmur, No systolic murmur, No friction rub, No click, No other Gastrointestinal: No tender, No soft, No round, No distended, No pulsatile mass , No organomegaly, No guarding, No rebound, No tenderness, No hernia, No mass, No audible bowel sounds, No abnormal bowel sounds, No abdominal bruits, No spleenomegaly, No other Rectal: deferred Extremities: No normal range of motion, No non-tender, No normal inspection, No pedal edema, No calf tenderness, No normal capillary refill, No pelvis stable , No calf tenderness, No inflammation, No pedal edema, No slow capillary refill , No swelling, No other, No abrasion, No clubbing, No cyanosis, No ecchymosis, No laceration, No no lower extremity edema bilateral, No significant edema, No tenderness, No wound Neurologic/Psychiatric: no motor/sensory deficits, alert, normal mood/affect, oriented x 3, power is 5/5 both on sides Skin: No normal color, No warm/dry, No cyanosis, No cool, No diaphoresis, No damp, No ecchymosis, No jaundice, No mottled, No pallor, No rash, No tattoos/ piercings, No ulcerations, No rash on exposed areas, No ulcerations on exposed areas, No other Data Review Labs Microbiology 01/14/18 Blood Culture - Preliminary, Resulted No growth ECG Impression ECG Initial ECG Rhythm: Normal Sinus A/P-Cardiology Assessment/Admission Diagnosis Weakness, Hypokalemia, Hyponatremia, Lung mass, COPD, History of CAD, Active smoking Plan Weakness and lethargy is likely secondary to hyponatremia and hypokalemia. Workup under way. Hyponatremia could be associated with lung mass as a paraneoplastic syndrome. Patient does not have significant cardiac symptoms. History of CAD with 2 stents. Patient does not follow with cardiology. He is also not on any cardiac meds. Patient does not have a primary care physician as well. I recommended that the patient be on cardiac medications. He doesn't seem to be very interested. I offered to follow him as an outpatient. He will think and consider about following. I requested the nurse to give our office information to the patient. I will try to get an echocardiogram before the patient is discharged. COPD: Defer to the primary team. Active smoking: Smoking cessation was strongly recommended. The patient is not interested. Thank you for your consultation. Please call me if you have any questions. Charlie Jain MD, FACP, FACC, FSCAI, FHRS, CCDS Interventional Cardiology Cardiac Electrophysiology Vascular Medicine and Endovascular Interventions Clinical Quality Measures DVT/VTE Risk/Contraindication: Risk Factor Score Per Nursin RFS Level Per Nursing on Admit: 4+=Very High Sidra JAIN MD Jan 15, 2018 12:51
== END 2018-01-15 17:00 | disposition home or self-care (01) | DRG 641 ==
LOC: EDUNIT# 19:03 → ER 19:04 → 4TH 21:40
PROVIDERS: ADMIT Family Medicine; ATTEND Family Medicine
DX: E87.1 Hypo-osmolality and hyponatremia (principal); R91.8 Other nonspecific abnormal finding of lung field; J43.9 Emphysema, unspecified; E87.2 Acidosis; R53.1 Weakness; E86.0 Dehydration; E87.6 Hypokalemia; F17.210 Nicotine dependence, cigarettes, uncomplicated; I25.10 Atherosclerotic heart disease of native coronary artery without angina pectoris; I10 Essential (primary) hypertension; R74.8 Abnormal levels of other serum enzymes; H91.90 Unspecified hearing loss, unspecified ear; Z85.118 Personal history of other malignant neoplasm of bronchus and lung; Z90.2 Acquired absence of lung [part of]; Z95.5 Presence of coronary angioplasty implant and graft; Z87.01 Personal history of pneumonia (recurrent); Z91.81 History of falling; F10.20 Alcohol dependence, uncomplicated; Z91.19 Patient's noncompliance with other medical treatment and regimen
CPT/HCPCS: 36415; 70450; 71045; 71260; 80053; 80306; 80320; 80329; 81000; 82550; 82553; 83605; 83735; 83880; 84443; 84484; 85025; 85027; 85610; 85730; 87040; 93005; 93041; 93306; 94640; 94664; 94760; 94761; 96361; 96374

== ENCOUNTER → 2018-01-19 | Outpatient (CLI) | payer MEDICARE ==
[~2018-01-19] MED LIST changes: +PANT40TA3 PO
--- NOTE | 2018-01-19 15:45 | Diagnostic Imaging Report ---
INDICATION: Right lung mass. This study is performed for further evaluation. Serum blood glucose level at the time of injection is 100 mg/dL. The patient was a administered 13.1 mCi F18-FDG intravenously in the right antecubital location and PET imaging was performed from the top of the skull to the mid thighs. Noncontrast CT was also performed for attenuation correction and anatomic correlation. Correlation is made with prior PET/CT from 12/27/[address] CT chest performed on 01/12/2018. There is symmetric activity throughout the brain. Soft tissues of the neck are unremarkable. Imaging through the chest again demonstrates a large mixed density mass adjacent to left hilum consistent with a hamartoma. No hypermetabolism within this mass is identified. However, there is hypermetabolism located within a spiculated density in the anterior right lower lobe adjacent to the right heart measuring 2.3 x 1.9 cm. This demonstrates an SUVmax of 7.7 and is suspicious for small neoplasm. There is also a small irregular density in the lingula measuring 1.6 x 1.1 cm. This too demonstrates some hypermetabolism with an SUVmax of approximately 4.4. No definite hilar or mediastinal hypermetabolism is seen. No other pulmonary parenchymal abnormalities are identified. Physiologic activity within the GI and tracts in the abdomen and pelvis is seen. No suspicious hypermetabolic foci are detected. IMPRESSION: Spiculated densities noted in both lung bases demonstrating hypermetabolism and suspicious for small neoplasms. The larger lesion is on the right and conceivably an attempt for a percutaneous biopsy could be performed if clinically indicated. The lesion in the lingula is likely too small for percutaneous biopsy. Dictated by: Dictated on workstation # [id number]
== END ==
LOC: RAD 11:27
PROVIDERS: ATTEND Internal Medicine Hematology & Oncology
DX: R91.8 Other nonspecific abnormal finding of lung field (principal)

== ENCOUNTER 2018-01-25 14:33 | Outpatient (RCR) | payer MEDICARE ==
[~2018-01-25 14:33] MED LIST changes: -LOSA50TA36 PO; +LOSA50TA7 PO
[2018-01-25 15:15] LABS: BASOPHILS # (AUTO) 0.1 10^3/uL (0.0-0.1); BASOPHILS % (AUTO) 0 % (0-10); EOSINOPHILS # (AUTO) 0.1 10^3/uL (0.0-0.3); EOSINOPHILS % (AUTO) 1 % (0-10); HEMATOCRIT 41 % (40-54); LYMPHOCYTES # (AUTO) 2.7 X 10^3 (1.0-4.0); LYMPHOCYTES % (AUTO) 22 % (12-44); MEAN CORPUSCULAR HEMOGLOBIN 33 PG (25-34); MEAN CORPUSCULAR HGB CONC 37 G/DL (32-36); MEAN CORPUSCULAR VOLUME 89 FL (80-99); MEAN PLATELET VOLUME 9.3 FL (7.4-10.4); MONOCYTES # (AUTO) 0.9 X 10^3 (0.0-1.0); MONOCYTES % (AUTO) 7 % (0-12); NEUTROPHILS # (AUTO) 8.2 X 10^3 (1.8-7.8); NEUTROPHILS % (AUTO) 69 % (42-75); PLATELET COUNT 309 10^3/uL (130-400); RED BLOOD COUNT 4.62 10^6/uL (4.35-5.85); RED CELL DISTRIBUTION WIDTH 14.4 % (10.0-14.5); WHITE BLOOD COUNT 11.9 10^3/uL (4.3-11.0)
[2018-01-25 15:35] LABS: ALANINE AMINOTRANSFERASE 66 U/L (0-55); ALBUMIN 4.3 GM/DL (3.2-4.5); ALKALINE PHOSPHATASE 90 U/L (40-136); BILIRUBIN,TOTAL 0.4 MG/DL (0.1-1.0); BUN/CREATININE RATIO 10; CALCIUM 9.6 MG/DL (8.5-10.1); CARBON DIOXIDE 23 MMOL/L (21-32); CHLORIDE 97 MMOL/L (98-107); CREATININE SERUM 0.87 MG/DL (0.60-1.30); GFR ESTIMATED > 60; GLUCOSE 127 MG/DL (70-105); POTASSIUM 4.4 MMOL/L (3.6-5.0); SODIUM 131 MMOL/L (135-145); TOTAL PROTEIN 7.5 GM/DL (6.4-8.2)
== END 2018-02-05 | disposition home or self-care (01) ==
LOC: ONC 14:33
PROVIDERS: ATTEND Internal Medicine Hematology & Oncology
DX: R91.8 Other nonspecific abnormal finding of lung field (principal); Z85.118 Personal history of other malignant neoplasm of bronchus and lung; F17.210 Nicotine dependence, cigarettes, uncomplicated; Z72.89 Other problems related to lifestyle
CPT/HCPCS: 36415; 80053; 83615; 85025; 99213

== ENCOUNTER → 2018-02-25 | Outpatient (CLI) | payer MEDICARE ==
[2018-02-25 13:11] LABS: BASOPHILS # (AUTO) 0.1 10^3/uL (0.0-0.1); BASOPHILS % (AUTO) 1 % (0-10); EOSINOPHILS # (AUTO) 0.1 10^3/uL (0.0-0.3); EOSINOPHILS % (AUTO) 2 % (0-10); HEMATOCRIT 42 % (40-54); HEMOGLOBIN 14.8 G/DL (13.3-17.7); LYMPHOCYTES # (AUTO) 2.3 X 10^3 (1.0-4.0); LYMPHOCYTES % (AUTO) 29 % (12-44); MEAN CORPUSCULAR HEMOGLOBIN 33 PG (25-34); MEAN CORPUSCULAR HGB CONC 35 G/DL (32-36); MEAN CORPUSCULAR VOLUME 93 FL (80-99); MEAN PLATELET VOLUME 9.7 FL (7.4-10.4); MONOCYTES # (AUTO) 1.1 X 10^3 (0.0-1.0); MONOCYTES % (AUTO) 14 % (0-12); NEUTROPHILS # (AUTO) 4.5 X 10^3 (1.8-7.8); NEUTROPHILS % (AUTO) 55 % (42-75); PLATELET COUNT 236 10^3/uL (130-400); RED BLOOD COUNT 4.51 10^6/uL (4.35-5.85); RED CELL DISTRIBUTION WIDTH 14.7 % (10.0-14.5); WHITE BLOOD COUNT 8.1 10^3/uL (4.3-11.0)
== END ==
LOC: LAB 12:57
PROVIDERS: ATTEND Nurse Practitioner
DX: R91.1 Solitary pulmonary nodule (principal); C34.11 Malignant neoplasm of upper lobe, right bronchus or lung; J44.9 Chronic obstructive pulmonary disease, unspecified
CPT/HCPCS: 36415; 85025

== ENCOUNTER → 2019-12-30 | Outpatient (CLI) | payer MEDICARE ==
[~2019-12-30] MED LIST changes: +CATHETER FLUSH 10 ML SYR IV PRN; +HOLD METFORMIN - RECEIVED CONTRAST 20 ML VIAL IV SCH; +IOHEXOL 350 MG/ML 100 ML (OMNIPAQUE 350) VIAL IV ONE; +LOSA50TA63 PO; -LOSA50TA7 PO; -METO-387 PO; +MTP25TSR PO; +NS 100 ML (IVPB) BAG IV ONE; -SOTA80TA PO; +STL80T PO
[2019-12-30 13:11] LABS: ALBUMIN 4.4 GM/DL (3.2-4.5); CHLORIDE 94 MMOL/L (98-107); POTASSIUM 5.3 MMOL/L (3.6-5.0); SODIUM 129 MMOL/L (135-145)
[2019-12-30 13:13] LABS: CALCIUM 9.7 MG/DL (8.5-10.1)
[2019-12-30 13:14] LABS: GLUCOSE 87 MG/DL (70-105); TOTAL PROTEIN 7.6 GM/DL (6.4-8.2)
[2019-12-30 13:15] LABS: CARBON DIOXIDE 24 MMOL/L (21-32)
[2019-12-30 13:16] LABS: BILIRUBIN,TOTAL 0.8 MG/DL (0.1-1.0)
[2019-12-30 13:17] LABS: ALKALINE PHOSPHATASE 59 U/L (40-136); CREATININE SERUM 1.05 MG/DL (0.60-1.30); GFR ESTIMATED > 60
[2019-12-30 13:19] LABS: BUN/CREATININE RATIO 12
[2019-12-30 13:20] LABS: ALANINE AMINOTRANSFERASE 26 U/L (0-55)
--- NOTE | 2019-12-30 15:24 | Diagnostic Imaging Report ---
PROCEDURE: CT chest with contrast only. TECHNIQUE: Multiple contiguous axial images were obtained through the chest after administration of intravenous contrast. Auto Exposure Controls were utilized during the CT exam to meet ALARA standards for radiation dose reduction. INDICATION: Lung neoplasm. Correlation is made with prior CT chest from 01/12/2018. FINDINGS: No axillary lymphadenopathy is identified. Subcutaneous low density lesion in the left breast is noted and appears stable. No mediastinal or hilar lymphadenopathy is identified. No pericardial or pleural fluid is detected. The mixed density mass adjacent to the left hilum with fat and calcification components measures 7.4 cm AP x 6.4 cm transverse. This compares with 6.9 cm x 5.9 cm on prior. 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 There are emphysematous changes throughout both lungs. There are irregular densities in the right middle lobe and lingula. Densities are somewhat ill-defined and difficult to measure, but the area of density in the right middle lobe does appear to be slightly greater at 2.8 x 1.4 cm compared with 2.2 x 1.9 cm. There is some irregular density in the lingula which appears stable. Lower lobes are unremarkable. Upper abdomen is without evidence of an adrenal mass. IMPRESSION: 1. 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 2. Areas of irregular density in the right middle lobe and lingula. Lingular density is stable. There appears to be some increasing size of right middle lobe density. This could be inflammatory in nature or perhaps represent atelectasis. An enlarging neoplastic process cannot be entirely excluded. Continued follow-up would be recommended. Dictated by: Dictated on workstation # [id number]
== END ==
LOC: RAD 12:39
PROVIDERS: ATTEND Radiology Radiation Oncology
DX: C34.11 Malignant neoplasm of upper lobe, right bronchus or lung (principal)
CPT/HCPCS: 36415; 71260; 80053

== ENCOUNTER 2020-08-15 11:00 | Outpatient (RCR) | payer MEDICARE ==
[~2020-08-15 11:00] MED LIST changes: +ASPI-1238 PO; -ASPI-983 PO; -CATHETER FLUSH 10 ML SYR IV PRN; -HOLD METFORMIN - RECEIVED CONTRAST 20 ML VIAL IV SCH; -IOHEXOL 350 MG/ML 100 ML (OMNIPAQUE 350) VIAL IV ONE; -LISI-552 PO; -LISI10TA2 PO; +LISI10TA25 PO; +LISI20TA26 PO; -NS 100 ML (IVPB) BAG IV ONE; -PANT40TA3 PO; +PANT40TA52 PO
== END 2020-11-13 | disposition home or self-care (01) ==
LOC: CARD 11:00
PROVIDERS: ATTEND Nurse Practitioner Family
DX: Z86.79 Personal history of other diseases of the circulatory system (principal)
CPT/HCPCS: 93225; 93226